=== PATIENT | female | born 1960 | race Caucasian/White ===

== ENCOUNTER 2018-04-26 04:08 | Inpatient (IN) | payer MEDICARE, MEDICAID ==
[2018-04-26 04:55] LABS: #Basophils 0.1 thou/uL (0.0-0.2); #Eosinphils 0.1 thou/uL (0.0-0.7); #Lymphocytes 2.4 thou/uL (1.20-3.40); #Monocytes 0.9 thou/uL (0.11-0.59); #Neutrophils 4.9 thou/uL (1.40-6.50); %Basophils 1.3 % (0.0-1.0); %Eosinophils 0.8 % (0.0-10.0); %Lymphocytes 28.3 % (21.0-51.0); %Neutrophils 58.6 % (42.0-75.0); Hemoglobin 14.8 g/dL (12.0-16.0); Mean Corpuscular HGB CONC 32.4 g/dL (32.0-36.0); Mean Corpuscular Hemoglobin 30.6 pg (27.0-31.0); Mean Corpuscular Volume 94.6 fL (78.0-98.0); Mean Platelet Volume 7.6 fL (7.4-10.4); Platelet Count 301 thou/uL (130-400); RBC Distribution Width 11.5 % (11.5-14.5); Red Blood Cell (RBC) Count 4.82 mill/uL (4.20-5.40); White Blood Cell (WBC) Count 8.4 thou/uL (4.8-10.8)
[2018-04-26 05:16] LABS: ALT (SGPT) 18 U/L (8-55); AST (SGOT) 15 U/L (5-34); Albumin 3.8 g/dL (3.5-5.0); Alkaline Phosphatase 134 U/L (40-150); Anion Gap 15 mmol/L (10-20); BUN (Urea Nitrogen) 11 mg/dL (9.8-20.1); Bilirubin, Total 0.3 mg/dL (0.2-1.2); Calc. Creatinine Clearance 0 mL/min (70-130); Carbon Dioxide 27 mmol/L (22-29); Chloride 99 mmol/L (98-107); Estimated GFR-MDRD 73; Globulin 3.4 g/dL (2.4-3.5); Glucose 161 mg/dL (70-105); Potassium 4.1 mmol/L (3.5-5.1); Protein, Total 7.2 g/dL (6.0-8.3); Sodium 137 mmol/L (136-145)
[2018-04-26] MEDS ORDERED: cefTRIAXone\\ROCEPHIN 2 GM VIAL ONE (06:39)
--- NOTE | 2018-04-26 07:57 | RAD ---
SINGLE VIEW OF THE CHEST: COMPARISON: None. HISTORY: Bronchitis with cough and shortness of breath. FINDINGS: Single view of the chest shows a normal sized cardiomediastinal silhouette. There is no evidence of c onsolidation, mass, or pleural effusion. The bones are unremarkable. IMPRESSION: No evidence of acute cardiopulmonary disease. POS: [facility]
[2018-04-26] MEDS ORDERED: Azithromycin 500 MG VIAL ONE (08:14)
[2018-04-26] MEDS ORDERED: Bacteriostatic Water 30 ML VIAL FS PRN (10:00)
[2018-04-26] MEDS ORDERED: Sodium Chloride 0.9% 10 ML ONE (10:13)
[2018-04-26] MEDS: methylPREDNISolone Sod Succ 40 MG VIAL IVP SCH ×2 (10:31→17:05)
[2018-04-26] MEDS ORDERED: Ondansetron PF 4 MG/2 ML Vial IVP PRN (12:32)
[2018-04-26] MEDS ORDERED: Ondansetron ODT 4 MG TAB PO PRN (12:32)
[2018-04-26] MEDS ORDERED: Acetaminophen 325 MG TAB PO PRN (12:32)
[2018-04-26] MEDS ORDERED: Senokot S 8.6-50 MG TAB PO PRN (12:32)
[2018-04-26] MEDS ORDERED: Calcium Carbonate 500 MG ChewTAB PO PRN (12:32)
[2018-04-26] MEDS ORDERED: Dextrose 50% Abboject 50 ML SYRINGE SLOW IVP PRN (12:32)
[2018-04-26] MEDS ORDERED: Dextrose 5% in Water 1,000 ML IV PRN (12:32)
[2018-04-26] MEDS ORDERED: Nitroglycerin 0.4 MG TAB (25 Tab Bottle) SL PRN (12:34)
[2018-04-26] MEDS ORDERED: Benzonatate 100 MG CAP PO PRN (12:36)
[2018-04-26] MEDS ORDERED: Gabapentin 300 MG CAP PO SCH (12:45)
[2018-04-26] MEDS ORDERED: Carvedilol 3.125 MG TAB PO SCH ×3 (12:45→21:00)
[2018-04-26] MEDS ORDERED: Aspirin 81 mg Enteric Coated Tablet PO SCH (12:45)
[2018-04-26] MEDS ORDERED: Losartan 25 MG TAB PO SCH (12:45)
[2018-04-26] MEDS ORDERED: Magnesium 2 GM/50 ML 2 GM in Premix Bag 1 BAG IVPB SCH (13:00)
[2018-04-26] MEDS: Sodium Chloride 0.9% 1,000 ML IV SCH (13:16)
--- NOTE | 2018-04-26 13:31 | HP ---
PRIMARY CARE DOCTOR: Dr. Marrufo. CHIEF COMPLAINT: Shortness of breath with wheezing of 1 week duration. HISTORY OF PRESENT ILLNESS: The patient is a 57-year-old female with asthma, diabetes mellitus type 2, hypertension, coronary artery disease, presented to the emergency room with worsening shortness of breath of one week duration. Over the last 1 week, the patient has progressively worsening shortness of breath along with wheezing. The patient gets short of breath on gxeb-sn-bonhpath exertion. She also had cough that was productive of thick whitish to greenish phlegm. Her symptoms progressively got worse for which she was evaluated by her PCP yesterday. She was diagnosed with asthmatic bronchitis. She was started on doxycycline along with inhalers without much improvement. The symptoms got worse last night, for which she presented to the emergency room. She denies any diaphoresis, nausea, vomiting, palpitations, or syncope. In the emergency room, initial vital signs showed temperature 97.6, respirations 20, pulse of 98 with a blood pressure 143/120, O2 saturation 91% on room air. Her chest x-ray showed possible right-sided infiltrate. She received ceftriaxone and azithromycin along with nebulizer treatment in the emergency room. The patient's grandchildren recently had common cold. PAST MEDICAL HISTORY: 1. Diabetes mellitus type 2. 2. Hypertension. 3. Hyperlipidemia. 4. Coronary artery disease with stent placement. 5. GERD. PAST SURGICAL HISTORY: 1. Bilateral knee replacement. 2. Right arm surgery. 3. Cholecystectomy. ALLERGIES: THE PATIENT DENIES ANY DRUG ALLERGIES. CURRENT HOME MEDICATIONS: 1. Aspirin 81 mg daily. 2. Nitroglycerin sublingual as needed. 3. Lipitor 80 mg daily. 4. Carvedilol 3.125 mg b.i.d. 5. Vitamin D3 2000 units b.i.d. 6. Gabapentin 300 mg daily. 7. Isosorbide mononitrate 30 mg daily. 8. Losartan 25 mg daily. 9. Mobic 15 mg daily. 10. Metformin 1000 mg b.i.d. 11. Omeprazole 20 mg daily. SOCIAL HISTORY: The patient currently lives at home with her family. She denies any smoking or drug use. She drinks alcohol socially. She lives at home with her . FAMILY HISTORY: Positive for pancreatic cancer in her sister, lung cancer in her mother as well as diabetes mellitus type 2 in several family members. REVIEW OF SYSTEMS: All other review of systems were reviewed and were found negative. PHYSICAL EXAMINATION: VITAL SIGNS: As discussed above. GENERAL: A 57-year-old female in dpcq-on-[id number] distress. Audible wheezing. HEENT: Head, atraumatic and normocephalic. Sclerae anicteric. Moist mucous membranes. No oral lesion. NECK: Supple. No stridor. No carotid bruit. LUNGS: Showed diffuse expiratory wheezing with right-sided rales. There were scattered rhonchi. Lungs were symmetrical with accessory muscle use. The patient is able to complete short phrases. HEART: S1 and S2 present. Regular rate and rhythm. No significant murmurs, rubs, or gallops appreciated. ABDOMEN: Soft, nontender, obese. Bowel sounds present. EXTREMITIES: No edema or calf tenderness. NEUROLOGIC: Grossly nonfocal. Moves all 4 extremities. PSYCHIATRY: Alert, awake, and oriented x3. SKIN: Warm and dry. LYMPH NODES: No palpable lymph nodes in the neck. PERIPHERAL VASCULAR: Radial pulses palpable bilaterally. MUSCULOSKELETAL: No joint swelling or tenderness. LABORATORY FINDINGS: WBC 8.4 with hemoglobin 14.8, hematocrit 45.6, platelets 301. Chemistry showed sodium 137, potassium 4.1, chloride 99, bicarbonate 27, BUN 11, creatinine 0.81. Troponin was negative. DIAGNOSTIC DATA: Chest x-ray by my review as discussed above. EKG by my review showed sinus rhythm without significant ST-T wave changes. IMPRESSION: 1. Acute asthma exacerbation with bronchitis and suspected right-sided pneumonia. 2. Diabetes mellitus type 2. 3. Chronic kidney disease, stage 2. 4. Hypertension. 5. Hyperlipidemia. 6. Coronary artery disease, status post stent placement. 7. Gastroesophageal reflux disease. PLAN: The patient will be monitored on the medical floor. We will continue ceftriaxone and azithromycin. We will resume selected home medications. Insulin sliding scale. Low-dose steroid due to significant wheezing. Resume PPIs. We will add Mucinex. DVT prophylaxis with SCDs. Plan of care was discussed with the patient and the family in detail. They stated understanding. Job ID: [id number]
[2018-04-26] MEDS: Insulin Regular 300 UNITS/3 ML VIAL SC PRN ×3 (15:30→22:52)
[2018-04-26] MEDS: metFORMIN 500 MG TAB PO SCH (17:05)
[2018-04-26] MEDS ORDERED: Insulin Glargine 15 UNITS in Pre-Filled Syringe 1 EACH SC SCH (17:30)
[2018-04-26] MEDS ORDERED: Famotidine 20 MG TAB PO SCH (21:00)
[2018-04-26] MEDS: Gabapentin 300 MG CAP PO SCH (21:51)
[2018-04-26] MEDS: guaiFENesin ER 600 MG TAB PO SCH (21:53)
[2018-04-27] MEDS: methylPREDNISolone Sod Succ 40 MG VIAL IVP SCH ×3 (02:21→17:08)
[2018-04-27] MEDS: Sodium Chloride 0.9% 1,000 ML IV SCH ×2 (03:50→17:07)
[2018-04-27] MEDS: Insulin Regular 300 UNITS/3 ML VIAL SC PRN ×4 (06:38→21:25)
[2018-04-27] MEDS: cefTRIAXone\\ROCEPHIN 2 GM in Sodium Chloride 0.9% 100 ML IVPB SCH (06:39)
[2018-04-27] MEDS ORDERED: Gabapentin 300 MG CAP PO SCH (09:00)
[2018-04-27] MEDS: metFORMIN 500 MG TAB PO SCH ×2 (09:18→17:08)
[2018-04-27] MEDS: Aspirin 81 mg Enteric Coated Tablet PO SCH (09:19)
[2018-04-27] MEDS: Atorvastatin Calcium 40 MG TAB PO SCH (09:20)
[2018-04-27] MEDS: Losartan 25 MG TAB PO SCH (09:22)
[2018-04-27] MEDS: guaiFENesin ER 600 MG TAB PO SCH ×2 (09:22→21:23)
[2018-04-27] MEDS: Carvedilol 3.125 MG TAB PO SCH ×2 (09:23→17:22)
[2018-04-27] MEDS: Azithromycin 500 MG in Sodium Chloride 0.9% 250 ML 250 ML IVPB SCH (09:36)
[2018-04-27] MEDS: Insulin Glargine 15 UNITS in Pre-Filled Syringe 1 EACH SC SCH (09:36)
--- NOTE | 2018-04-27 19:28 | PDOC.PN ---
- Subjective Encounter Start Date: 04/27/18 Encounter Start Time: 11:30 Patient seen and examined for Pneumonia. Cough and wheezing +. No new complaints. No overnight events - Objective Resuscitation Status - Order Detail: 04/26/18 12:32 Resuscitation Status Routine Resuscitation Status: FULL: Full Resuscitation MAR Reviewed: Yes Vital Signs & Weight: Vital Signs (12 hours) Temp Pulse Resp BP Pulse Ox 04/27/18 16:00 97.9 F 101 H 16 125/64 98 04/27/18 14:15 91 18 94 L 04/27/18 11:00 97.7 F 106 H 16 141/82 H 98 04/27/18 07:44 98.0 F 107 H 16 138/79 97 04/27/18 07:30 89 18 95 Weight Weight 244 lb 11.41 oz I&O: 04/26/18 04/27/18 04/28/18 06:59 06:59 06:59 Intake Total 1607 Balance 1607 Result Diagrams: 04/26/18 04:46 04/26/18 04:46 Additional Labs: Accuchecks 04/27/18 04/27/18 04/27/18 16:15 10:49 06:38 POC Glucose 203 H 315 H 195 H 04/26/18 04/26/18 22:34 19:26 POC Glucose 302 H 317 H Phys Exam - Physical Examination Constitutional: NAD Respiratory: no rhonchi, wheezing present Cardiovascular: RRR, no rub Gastrointestinal: soft, positive bowel sounds Musculoskeletal: no edema Dx/Plan - Plan DVT proph w/SCDs IMPRESSION: 1. Acute asthma exacerbation with bronchitis and suspected right-sided pneumonia. 2. Diabetes mellitus type 2. 3. Chronic kidney disease, stage 2. 4. Hypertension. 5. Hyperlipidemia. 6. Coronary artery disease, status post stent placement. 7. Gastroesophageal reflux disease. PLAN: Cont Ceftriaxone/Azithromycin Cont IV Steroids Add Lantus 10 units HS Cont Lantus 15 units QAM Cont other meds as below Cont Nebs Q4 Review of Systems - Review of Systems Cardiovascular: negative: chest pain, palpitations, orthopnea, paroxysmal nocturnal dyspnea, edema, light headedness, other Gastrointestinal: negative: Nausea, Vomiting, Abdominal Pain, Diarrhea, Constipation, Melena, Hematochezia, Other - Medications/Allergies Allergies/Adverse Reactions: Allergies Allergy/AdvReac Type Severity Reaction Status Date / Time No Known Allergies Allergy Verified 04/26/18 09:45 Medications: Current Medications Acetaminophen (Tylenol) 650 mg PO Q4H PRN PRN Reason: Headache/Fever/Mild Pain (1-3) Albuterol/Ipratropium (Duoneb) 3 ml NEB [id number] Last Admin: 04/27/18 14:15 Dose: 3 ml Albuterol/Ipratropium (Duoneb) 3 ml NEB [id number] PRN PRN Reason: SOB &/or Wheezing Aspirin (Ecotrin) 81 mg PO DAILY [facility] Last Admin: 04/27/18 09:19 Dose: 81 mg Atorvastatin Calcium (Lipitor) 80 mg PO DAILY [facility] Last Admin: 04/27/18 09:20 Dose: 80 mg Benzonatate (Tessalon) 100 mg PO TID PRN PRN Reason: Cough Calcium Carbonate (Tums) 1,000 mg PO Q4H PRN PRN Reason: Heartburn or Indigestion Carvedilol (Coreg) 3.125 mg PO BID[facility] Last Admin: 04/27/18 17:22 Dose: 3.125 mg Cholecalciferol (Vitamin D3) 2,000 units PO BID [facility] Last Admin: 04/27/18 09:22 Dose: 2,000 units Dextrose/Water (Dextrose 50%) 25 gm SLOW IVP PRN PRN PRN Reason: Hypoglycemia Gabapentin (Neurontin) 300 mg PO HS [facility] Last Admin: 04/26/18 21:51 Dose: 300 mg Glucagon (Glucagon) 1 mg IM PRN PRN PRN Reason: Hypoglycemia Guaifenesin (Mucinex) 600 mg PO Q12HR [facility] Last Admin: 04/27/18 09:22 Dose: 600 mg Azithromycin 500 mg/ Sodium (Chloride) 250 mls @ 250 mls/hr IVPB 0900 [facility] Last Admin: 04/27/18 09:36 Dose: 250 mls Sodium Chloride (Normal Saline 0.9%) 1,000 mls @ 75 mls/hr IV .[id number] [facility] Last Admin: 04/27/18 17:07 Dose: 1,000 mls Dextrose/Water (D5w) 1,000 mls @ 0 mls/hr IV .Q0M PRN PRN Reason: Hypoglycemia Ceftriaxone Sodium 2 gm/ (Sodium Chloride) 100 mls @ 200 mls/hr IVPB 0600 [facility] Last Admin: 04/27/18 06:39 Dose: 100 mls Insulin Glargine 15 units/ (Miscellaneous Medication) 0.15 mls @ 0 mls/hr SC QAM [facility] Last Admin: 04/27/18 09:36 Dose: 0.15 mls Insulin Glargine 10 units/ (Miscellaneous Medication) 0.1 mls @ 0 mls/hr SC HS [facility] Insulin Human Regular (Humulin R) 0 units SC .BEDTIME SLIDING SC PRN PRN Reason: Bedtime Correctional Scale Last Admin: 04/26/18 22:52 Dose: 4 unit Insulin Human Regular (Humulin R) 0 units SC .AGGRESSIVE SLIDING PRN PRN Reason: Aggressive Sliding Scale Last Admin: 04/27/18 17:11 Dose: 6 unit Isosorbide Mononitrate (Imdur Er) 30 mg PO DAILY [facility] Last Admin: 04/27/18 09:24 Dose: 30 mg Losartan Potassium (Cozaar) 25 mg PO DAILY [facility] Last Admin: 04/27/18 09:22 Dose: 25 mg Metformin HCl (Glucophage) 1,000 mg PO BID-[facility] Last Admin: 04/27/18 17:08 Dose: 1,000 mg Methylprednisolone Sodium Succinate (Solu-Medrol) 20 mg IVP 0200,1000,1800 [facility] Last Admin: 04/27/18 17:08 Dose: 20 mg Nitroglycerin (Nitrostat) 0.4 mg SL Q5MIN PRN PRN Reason: Chest Pain Ondansetron HCl (Zofran Odt) 4 mg PO Q6H PRN PRN Reason: Nausea/Vomiting Ondansetron HCl (Zofran) 4 mg IVP Q6H PRN PRN Reason: Nausea/Vomiting Pantoprazole Sodium (Protonix) 40 mg PO DAILY [facility] Last Admin: 04/27/18 09:22 Dose: 40 mg Senna/Docusate Sodium (Senokot S) 2 tab PO BID PRN PRN Reason: Constipation Sodium Chloride (Flush - Normal Saline) 10 ml IVF PRN PRN PRN Reason: Saline Flush Sterile Water (Bacteriostatic Water) 1 ml FS PRN PRN PRN Reason: RECONSTITUTION
[2018-04-27] MEDS ORDERED: Sodium Chloride 0.9% 1,000 ML IV SCH (19:33)
[2018-04-27] MEDS ORDERED: Insulin Glargine 10 UNITS in Pre-Filled Syringe 1 EACH SC SCH (21:00)
[2018-04-27] MEDS: Gabapentin 300 MG CAP PO SCH (21:22)
[2018-04-28] MEDS: methylPREDNISolone Sod Succ 40 MG VIAL IVP SCH ×2 (02:20→09:36)
[2018-04-28] MEDS: cefTRIAXone\\ROCEPHIN 2 GM in Sodium Chloride 0.9% 100 ML IVPB SCH (06:16)
[2018-04-28] MEDS: Insulin Regular 300 UNITS/3 ML VIAL SC PRN ×2 (06:25→12:09)
[2018-04-28] MEDS: Azithromycin 500 MG in Sodium Chloride 0.9% 250 ML 250 ML IVPB SCH (08:08)
[2018-04-28] MEDS: guaiFENesin ER 600 MG TAB PO SCH (08:09)
[2018-04-28] MEDS: Aspirin 81 mg Enteric Coated Tablet PO SCH (08:09)
[2018-04-28] MEDS: metFORMIN 500 MG TAB PO SCH (08:10)
[2018-04-28] MEDS: Atorvastatin Calcium 40 MG TAB PO SCH (08:16)
[2018-04-28] MEDS: Insulin Glargine 15 UNITS in Pre-Filled Syringe 1 EACH SC SCH (08:17)
[2018-04-28] MEDS: Carvedilol 3.125 MG TAB PO SCH (09:33)
[2018-04-28] MEDS: Losartan 25 MG TAB PO SCH (09:33)
[2018-04-28 12:40] VITALS: BP 144/76; TEMP 97.5
--- NOTE | 2018-04-29 14:33 | DIS ---
DATE OF ADMISSION: 04/26/2018 DATE OF DISCHARGE: 04/28/2018 DISCHARGE DISPOSITION: Home. FOLLOWUP: Follow up with primary care physician, Dr. Marrufo in 1 week. The patient was seen and examined on the day of discharge. Denies any new complaints. Shortness of breath has significantly improved. She appears comfortable. She prefers to get discharged. DISCHARGE MEDICATIONS: 1. Azithromycin 250 mg daily for next four days. 2. Glipizide 5 mg daily. 3. Prednisone 10 mg twice a day for next 5 days. 4. Mucinex 600 mg b.i.d. All other home medications were left unchanged. ALLERGIES: NO KNOWN DRUG ALLERGIES. BRIEF HOSPITAL COURSE: The patient is a 57-year-old female with asthma, diabetes mellitus type 2, hypertension, and coronary artery disease, presented to the emergency room with worsening shortness of breath and wheezing of one week duration. Please refer to the history and physical dated first April 2018 for further details. The patient was admitted to the hospital with a diagnosis of acute asthma exacerbation with bronchitis with suspected right-sided pneumonia. She showed good improvement with oxygen nebulizer treatment, IV steroids along with antibiotics. She was placed on ceftriaxone and azithromycin intravenously that has been changed to oral. She had some issues with hyperglycemia secondary to steroids requiring sliding scale as well as Lantus insulin. She has been started on glipizide for this reason. On the day of discharge, the wheezing has significantly improved. She feels confident. She appears stable for discharge. DIAGNOSTIC TESTS: BNP was less than 10. Troponin was negative. WBC 8.4 with hemoglobin 14.8. Chest x-ray showed suspected right-sided pneumonia. Lifestyle modification was emphasized. FINAL DIAGNOSES: 1. Acute asthma exacerbation with bronchitis with suspected right-sided pneumonia. 2. Diabetes mellitus type 2. 3. Chronic kidney disease stage 2. 4. Hypertension. 5. Hyperlipidemia. 6. Coronary artery disease, status post stent placement. 7. Gastroesophageal reflux disease. PLAN: Plan was discussed with the patient in detail. She stated understanding. Job ID: [id number]
== END 2018-04-28 15:56 | disposition home or self-care (01) | DRG 202 ==
LOC: ERS 04:08 → ERHOLD 07:07 → 3SE 09:24
PROVIDERS: ADMIT Hospitalist; ATTEND Hospitalist
DX: J45.901 Unspecified asthma with (acute) exacerbation (principal); J18.9 Pneumonia, unspecified organism; I25.10 Atherosclerotic heart disease of native coronary artery without angina pectoris; K21.9 Gastro-esophageal reflux disease without esophagitis; E11.65 Type 2 diabetes mellitus with hyperglycemia; N18.2 Chronic kidney disease, stage 2 (mild); E11.22 Type 2 diabetes mellitus with diabetic chronic kidney disease; E78.5 Hyperlipidemia, unspecified; I12.9 Hypertensive chronic kidney disease with stage 1 through stage 4 chronic kidney disease, or unspecified chronic kidney disease; Z96.653 Presence of artificial knee joint, bilateral; Z95.5 Presence of coronary angioplasty implant and graft; Z90.49 Acquired absence of other specified parts of digestive tract; Z79.82 Long term (current) use of aspirin; Z79.84 Long term (current) use of oral hypoglycemic drugs; Z79.899 Other long term (current) drug therapy; Z98.890 Other specified postprocedural states; Z23 Encounter for immunization
CPT/HCPCS: 36415; 36416; 71045; 80053; 83880; 84484; 85025; 93005; 94640; J0456; J0696; J1815; J1825; J2920; J3475; J7050; J7620

== ENCOUNTER 2018-06-11 12:16 | Emergency (ER) | payer MEDICARE, MEDICAID ==
--- NOTE | 2018-06-11 13:43 | RAD ---
RIGHT KNEE FOUR VIEWS: HISTORY: Pain and swelling. FINDINGS: Knee prosthesis. Components appear adequately positioned. No evidence of component loosening. Prom inent hypertrophic changes are present. No evidence of joint effusion. No evidence of acute fractur e. IMPRESSION: No acute abnormality identified. POS: [facility]
[2018-06-11] MEDS ORDERED: Acetaminophen 500 MG TAB ONE (13:45)
[2018-06-11 13:48] LABS: Bilirubin Negative (Negative); Blood, Urine Negative (Negative); Clarity CLOUDY (Clear); Glucose, Urine (Dipstick) 500 mg/dL (Negative); Leukocyte Negative (Negative); Nitrite Negative (Negative); Protein, Urine (Dipstick) Negative (Neg-Trace); Specific Gravity, Urine 1.028 (1.002-1.036); Urobilinogen 0.2 mg/dL (0.2-1.0)
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
== END 2018-06-11 14:32 | disposition home or self-care (01) ==
LOC: ERS 12:16
DX: S20.212A Contusion of left front wall of thorax, initial encounter (principal); S80.01XA Contusion of right knee, initial encounter; E11.9 Type 2 diabetes mellitus without complications; I10 Essential (primary) hypertension; V49.9XXA Car occupant (driver) (passenger) injured in unspecified traffic accident, initial encounter
CPT/HCPCS: 71250; 81003; 93005

== ENCOUNTER 2018-07-10 15:05 | Outpatient (CLI) | payer MEDICARE, MEDICAID ==
--- NOTE | 2018-07-10 15:21 | RAD ---
EXAM: Chest 2 views: HISTORY: Dyspnea COMPARISON: None. FINDINGS: There is a normal-sized cardiomediastinal silhouette. There is no evidence of consolidation, mass, or pleural effusion. The bones are unremarkable. IMPRESSION: No evidence of acute cardiopulmonary disease
== END 2018-07-10 15:06 | disposition home or self-care (01) ==
LOC: RAD 15:05
PROVIDERS: ATTEND Internal Medicine Pulmonary Disease
DX: R06.00 Dyspnea, unspecified (principal)
CPT/HCPCS: 71046

== ENCOUNTER 2018-08-09 19:30 | Outpatient (CLI) | payer MEDICARE, MEDICAID | END 2018-08-09 19:31 | disposition home or self-care (01) | LOC: SLEEPLAB 19:30 | PROVIDERS: ATTEND Internal Medicine Pulmonary Disease | DX: G47.33 Obstructive sleep apnea (adult) (pediatric) (principal); R53.83 Other fatigue; K21.9 Gastro-esophageal reflux disease without esophagitis; J44.9 Chronic obstructive pulmonary disease, unspecified; I11.0 Hypertensive heart disease with heart failure; I50.9 Heart failure, unspecified; G47.00 Insomnia, unspecified; G47.10 Hypersomnia, unspecified; I25.10 Atherosclerotic heart disease of native coronary artery without angina pectoris; E11.9 Type 2 diabetes mellitus without complications; R06.83 Snoring; E66.9 Obesity, unspecified; Z68.41 Body mass index [BMI] 40.0-44.9, adult | CPT/HCPCS: 95811 ==

== ENCOUNTER 2019-08-12 12:03 | Outpatient (CLI) | payer MEDICARE, MEDICAID ==
--- NOTE | 2019-08-20 10:01 | MMO ---
Bilateral MAMMO Bilat Screen [facility]. CLINICAL HISTORY: Patient is 58 years old and is seen for screening. The patient has the following family history of breast cancer: mother, malignant (generic). The patient has no personal history of cancer. VIEWS: The views performed were: bilateral craniocaudal with tomosynthesis and bilateral mediolateral oblique with tomosynthesis. FILMS COMPARED: The present examination has been compared to prior imaging studies performed at [facility] on 04/26/2015 and 06/06/2016. This study has been interpreted with the assistance of computer-aided detection. MAMMOGRAM FINDINGS: The breasts are almost entirely fat. There are stable benign appearing calcifications seen in both breasts. There are no suspicious masses, suspicious calcifications, or new areas of architectural distortion. IMPRESSION: THERE IS NO MAMMOGRAPHIC EVIDENCE OF MALIGNANCY. A ROUTINE FOLLOW-UP MAMMOGRAM IN 1 YEAR IS RECOMMENDED. THE RESULTS OF THIS EXAM WERE SENT TO THE PATIENT. ACR BI-RADS Category 2 - Benign finding MAMMOGRAPHY NOTE: 1. A negative mammogram report should not delay a biopsy if a dominant of clinically suspicious mass is present. 2. Approximately 10% to 15% of breast cancers are not detected by mammography. 3. Adenosis and dense breasts may obscure an underlying neoplasm. Reported by: FELIPE RENTERIA MD Electonically Signed: [id number]
== END 2019-08-12 12:04 | disposition home or self-care (01) ==
LOC: BICMAMMO 12:03
PROVIDERS: ATTEND Family Medicine
DX: Z12.31 Encounter for screening mammogram for malignant neoplasm of breast (principal); Z80.3 Family history of malignant neoplasm of breast
CPT/HCPCS: 77063; 77067

== ENCOUNTER 2019-08-18 06:11 | Outpatient (CLI) | payer MEDICARE, MEDICAID, OTHER ==
[2019-08-19 13:46] LABS: SARS-CoV-2 MS2 Positive; SARS-CoV-2 N Gene Negative; SARS-CoV-2 S Gene Negative; SARS-CoV-2 orf1ab Negative
== END 2019-08-18 06:12 | disposition home or self-care (01) ==
LOC: LABBT 06:11
PROVIDERS: ATTEND Internal Medicine Gastroenterology
DX: Z01.812 Encounter for preprocedural laboratory examination (principal); Z11.59 Encounter for screening for other viral diseases; K52.9 Noninfective gastroenteritis and colitis, unspecified; R15.9 Full incontinence of feces; K92.1 Melena; J45.909 Unspecified asthma, uncomplicated; E11.9 Type 2 diabetes mellitus without complications; I25.10 Atherosclerotic heart disease of native coronary artery without angina pectoris; K21.9 Gastro-esophageal reflux disease without esophagitis; E66.01 Morbid (severe) obesity due to excess calories; Z86.010 Personal history of colon polyps
CPT/HCPCS: 87635; U0003

== ENCOUNTER 2019-08-21 05:54 | Day surgery (SDC) | payer MEDICARE, MEDICAID ==
[2019-08-15 12:26] VITALS: BMI 44.2
--- NOTE | 2019-08-21 09:18 | OP ---
DATE OF PROCEDURE: 08/21/2019 PROCEDURES: Esophagogastroduodenoscopy with biopsy and colonoscopy with biopsy. PREOPERATIVE DIAGNOSES: Gastroesophageal reflux disease, hematochezia, chronic diarrhea, history of colon polyps. DESCRIPTION OF PROCEDURE: Informed consent was obtained from the patient. She was sedated with total intravenous anesthesia. The bite block was placed, and the endoscope was advanced without difficulty to the second portion of the duodenum. The esophagus had grade A erosive esophagitis in the distal esophagus. The stomach had erosive gastritis in the proximal body, but was otherwise unremarkable. Retroflexed views in the stomach were normal. The antrum was unremarkable. Biopsies were taken from the antrum and body to rule out H pylori. The pylorus and first and second portions of the duodenum were normal. Duodenal biopsies were taken to rule out celiac disease. The patient was turned around. Rectal exam was performed and was normal. The colonoscope was advanced to the terminal ileum without difficulty. The mucosa of the terminal ileum was normal. The ileocecal valve and appendiceal orifice were clearly identified. The preparation quality was good. There was moderate diverticulosis in the sigmoid and descending colon. I removed two polyps measuring 5 mm from the transverse colon by cold snare polypectomy. The remainder of the colonic mucosa was normal. Retroflexed views in the rectum revealed moderate internal hemorrhoids. Random biopsies were taken from the ascending, transverse, and sigmoid colon to rule out microscopic colitis. IMPRESSION: 1. Grade A erosive esophagitis. 2. Erosive gastritis in the proximal body. Biopsies were taken from the stomach to rule out Helicobacter pylori. 3. Otherwise normal esophagogastroduodenoscopy. Duodenal biopsies were taken to rule out celiac disease. 4. Sigmoid and descending moderate diverticulosis. 5. Two polyps measuring 5 mm removed from the transverse colon by cold snare polypectomy. 6. Otherwise normal colonoscopy to the terminal ileum. Random biopsies were taken from the colon to rule out microscopic colitis. 7. Moderate internal hemorrhoids. RECOMMENDATIONS: 1. Await histopathology. 2. Repeat colonoscopy in 5 years. 3. Follow up in GI clinic. 4. Start Metamucil two capsules daily. Job ID: [id number]
[2019-08-21] MEDS ORDERED: PROPOFOL 200 MG/20 ML VIAL ONE (10:35)
== END 2019-08-21 08:56 | disposition home or self-care (01) ==
LOC: SDC 05:54
PROVIDERS: ATTEND Internal Medicine Gastroenterology
PROC: 0DB98ZX Excision of Duodenum, Via Natural or Artificial Opening Endoscopic, Diagnostic (ICD-10-PCS; principal; 2019-08-21)
PROC: 0DB78ZX Excision of Stomach, Pylorus, Via Natural or Artificial Opening Endoscopic, Diagnostic (ICD-10-PCS; 2019-08-21)
PROC: 0DBL8ZX Excision of Transverse Colon, Via Natural or Artificial Opening Endoscopic, Diagnostic (ICD-10-PCS; 2019-08-21)
PROC: 0DBK8ZX Excision of Ascending Colon, Via Natural or Artificial Opening Endoscopic, Diagnostic (ICD-10-PCS; 2019-08-21)
PROC: 0DBL8ZX Excision of Transverse Colon, Via Natural or Artificial Opening Endoscopic, Diagnostic (ICD-10-PCS; 2019-08-21)
PROC: 0DBN8ZX Excision of Sigmoid Colon, Via Natural or Artificial Opening Endoscopic, Diagnostic (ICD-10-PCS; 2019-08-21)
DX: K57.31 Diverticulosis of large intestine without perforation or abscess with bleeding (principal); D12.3 Benign neoplasm of transverse colon; K52.9 Noninfective gastroenteritis and colitis, unspecified; K31.89 Other diseases of stomach and duodenum; D72.820 Lymphocytosis (symptomatic); K64.8 Other hemorrhoids; K21.0 Gastro-esophageal reflux disease with esophagitis; R15.9 Full incontinence of feces; I25.10 Atherosclerotic heart disease of native coronary artery without angina pectoris; E11.9 Type 2 diabetes mellitus without complications; E78.00 Pure hypercholesterolemia, unspecified; I10 Essential (primary) hypertension; J45.909 Unspecified asthma, uncomplicated; E66.01 Morbid (severe) obesity due to excess calories; Z68.41 Body mass index [BMI] 40.0-44.9, adult; Z86.010 Personal history of colon polyps; Z86.73 Personal history of transient ischemic attack (TIA), and cerebral infarction without residual deficits; Z79.82 Long term (current) use of aspirin; Z79.84 Long term (current) use of oral hypoglycemic drugs; Z79.899 Other long term (current) drug therapy
CPT/HCPCS: 88305; 88312; J2704

== ENCOUNTER 2020-01-12 08:56 | Outpatient (CLI) | payer MEDICARE, MEDICAID ==
[2020-01-12 23:15] LABS: SARS-CoV-2 MS2 Positive; SARS-CoV-2 N Gene Negative; SARS-CoV-2 S Gene Negative; SARS-CoV-2 by NAA Not Detected (NotDetected); SARS-CoV-2 orf1ab Negative
== END 2020-01-12 08:57 | disposition home or self-care (01) ==
LOC: LABBT 08:56
PROVIDERS: ATTEND Physical Medicine & Rehabilitation
DX: Z01.812 Encounter for preprocedural laboratory examination (principal); Z20.828 Contact with and (suspected) exposure to other viral communicable diseases
CPT/HCPCS: 87635; U0003

== ENCOUNTER → 2020-01-16 | Day surgery (SDC) | payer MEDICARE, MEDICAID ==
[~2020-01-16] MED LIST: Fentanyl 100 MCG/2 ML VIAL ONE; Midazolam HCl 2 mg/2 ml Vial ONE
== END ==
LOC: SDC/OP 11:11
PROVIDERS: ATTEND Physical Medicine & Rehabilitation
DX: M54.5 Low back pain (principal); Z53.9 Procedure and treatment not carried out, unspecified reason
CPT/HCPCS: J2250; J3010

== ENCOUNTER 2020-06-03 10:20 | Outpatient (CLI) | payer MEDICARE, MEDICAID ==
[2020-06-03 17:45] LABS: SARS-CoV-2 PCR by NAA Not Detected (NotDetected)
== END 2020-06-03 10:21 | disposition home or self-care (01) ==
LOC: LABBT 10:20
PROVIDERS: ATTEND Physical Medicine & Rehabilitation
DX: Z01.812 Encounter for preprocedural laboratory examination (principal); Z20.822 Contact with and (suspected) exposure to COVID-19
CPT/HCPCS: U0003; U0005; 87635

== ENCOUNTER 2020-06-07 10:02 | Day surgery (SDC) | payer MEDICARE, MEDICAID ==
[2020-06-04 09:07] VITALS: BMI 44.1
[2020-06-07] MEDS ORDERED: Midazolam HCl 2 mg/2 ml Vial ONE (11:39)
[2020-06-07] MEDS ORDERED: PHENYLEPHRINE-NS 100 MCG/ML 10 ML SYRINGE ONE (12:00)
[2020-06-07] MEDS ORDERED: Dexamethasone 20 MG/5 ML VIAL ONE (12:00)
[2020-06-07] MEDS ORDERED: PROPOFOL 200 MG/20 ML VIAL ONE (12:00)
[2020-06-07] MEDS ORDERED: Lidocaine 1% PF 5 ML VIAL ONE (12:00)
[2020-06-07] MEDS ORDERED: Ondansetron PF 4 MG/2 ML Vial ONE (12:00)
== END 2020-06-07 14:25 | disposition home or self-care (01) ==
LOC: SDC/OP 10:02
PROVIDERS: ATTEND Physical Medicine & Rehabilitation
DX: M43.16 Spondylolisthesis, lumbar region (principal); M54.16 Radiculopathy, lumbar region; D18.09 Hemangioma of other sites; M25.78 Osteophyte, vertebrae; M48.061 Spinal stenosis, lumbar region without neurogenic claudication; E11.9 Type 2 diabetes mellitus without complications; Z86.73 Personal history of transient ischemic attack (TIA), and cerebral infarction without residual deficits; Z79.82 Long term (current) use of aspirin; Z79.84 Long term (current) use of oral hypoglycemic drugs; Z79.899 Other long term (current) drug therapy; Z96.653 Presence of artificial knee joint, bilateral
CPT/HCPCS: 72148; J1100; J2250; J2405; J2704

== ENCOUNTER 2020-08-11 11:02 | Inpatient (IN) | payer MEDICARE, MEDICAID ==
[2020-08-11 12:07] LABS: Eosinophils 1 % (0-10); Hemoglobin 13.8 g/dL (12.0-16.0); Lymphocytes 20 % (21-51); MDiff Complete? YES; Mean Corpuscular HGB CONC 32.9 g/dL (32.0-36.0); Mean Corpuscular Hemoglobin 30.2 pg (27.0-31.0); Mean Corpuscular Volume 91.8 fL (78.0-98.0); Mean Platelet Volume 9.6 fL (7.4-10.4); Monocytes 10 % (0-10); Neutrophil 69 % (42-75); Platelet Count 212 thou/uL (130-400); RBC Distribution Width 12.8 % (11.5-14.5); Red Blood Cell (RBC) Count 4.57 mill/uL (4.20-5.40); White Blood Cell (WBC) Count 10.5 thou/uL (4.8-10.8)
[2020-08-11 12:19] LABS: ALT (SGPT) 25 U/L (8-55); AST (SGOT) 34 U/L (5-34); Albumin 3.6 g/dL (3.5-5.0); Alkaline Phosphatase 137 U/L (40-110); Anion Gap 20 mmol/L (10-20); BUN (Urea Nitrogen) 21 mg/dL (9.8-20.1); Bilirubin, Total 0.8 mg/dL (0.2-1.2); CK (CPK) 44 U/L (29-168); Calc. Creatinine Clearance 0 mL/min (70-130); Calcium 8.8 mg/dL (7.8-10.44); Carbon Dioxide 21 mmol/L (22-29); Chloride 103 mmol/L (98-107); Globulin 3.3 g/dL (2.4-3.5); Glucose 217 mg/dL (70-105); Lipase 33 U/L (8-78); Potassium 4.5 mmol/L (3.5-5.1); Protein, Total 6.9 g/dL (6.0-8.3); Sodium 139 mmol/L (136-145)
[2020-08-11 16:54] LABS: Troponin I Less than 0.010 ng/mL (< 0.028)
[2020-08-11] MEDS ORDERED: Ondansetron PF 4 MG/2 ML Vial IVP PRN (17:08)
[2020-08-11] MEDS ORDERED: Acetaminophen 325 MG TAB PO PRN (17:08)
[2020-08-11] MEDS ORDERED: Acetaminophen 650 MG Suppository PR PRN (17:08)
[2020-08-11] MEDS ORDERED: Ondansetron ODT 4 MG TAB PO PRN (17:08)
[2020-08-11] MEDS ORDERED: Aspirin 325 MG TAB PO SCH (17:15)
[2020-08-11 19:23] LABS: Troponin I Less than 0.010 ng/mL (< 0.028)
[2020-08-11] MEDS ORDERED: Aspirin 325 MG TAB ONE (19:55)
[2020-08-11] MEDS ORDERED: Aspirin Chewable 81 MG TAB ONE (19:58)
[2020-08-12 05:21] LABS: #Basophils 0.1 thou/uL (0.0-0.2); #Eosinphils 0.4 thou/uL (0.0-0.7); #Lymphocytes 2.9 thou/uL (1.20-3.40); #Monocytes 0.7 thou/uL (0.11-0.59); %Basophils 0.9 % (0.0-1.0); %Eosinophils 3.9 % (0.0-10.0); %Lymphocytes 28.8 % (21.0-51.0); %Monocytes 7.2 % (0.0-10.0); %Neutrophils 59.2 % (42.0-75.0); Hemoglobin 13.4 g/dL (12.0-16.0); Mean Corpuscular HGB CONC 33.7 g/dL (32.0-36.0); Mean Corpuscular Hemoglobin 31.4 pg (27.0-31.0); Mean Corpuscular Volume 93.1 fL (78.0-98.0); Mean Platelet Volume 8.3 fL (7.4-10.4); Platelet Count 230 thou/uL (130-400); RBC Distribution Width 12.7 % (11.5-14.5); Red Blood Cell (RBC) Count 4.27 mill/uL (4.20-5.40); White Blood Cell (WBC) Count 10.1 thou/uL (4.8-10.8)
[2020-08-12 05:42] LABS: Anion Gap 13 mmol/L (10-20); BUN (Urea Nitrogen) 25 mg/dL (9.8-20.1); Calc. Creatinine Clearance 0 mL/min (70-130); Calcium 9.3 mg/dL (7.8-10.44); Carbon Dioxide 26 mmol/L (22-29); Cardiac Risk 5.4 (Less than 4.5); Chloride 101 mmol/L (98-107); Cholesterol 141 mg/dl (< 200 Desired); Glucose 163 mg/dL (70-105); HDL Cholesterol 26 mg/dL (>60 Neg Risk); Potassium 3.5 mmol/L (3.5-5.1); Sodium 136 mmol/L (136-145); Triglycerides 432 mg/dL (Less than 150)
[2020-08-12 05:44] LABS: LDL Cholesterol, Calculated 29 mg/dL
[2020-08-12 07:45] VITALS: BMI 43.9
[2020-08-12] MEDS ORDERED: Aspirin Chewable 81 MG TAB ONE (07:48)
[2020-08-12] MEDS: Aspirin Chewable 81 MG TAB PO SCH (07:49)
[2020-08-12] MEDS ORDERED: Dextrose 50% Abboject 50 ML SYRINGE SLOW IVP PRN (08:14)
[2020-08-12] MEDS ORDERED: Dextrose 5% in Water 1,000 ML IV PRN (08:14)
[2020-08-12] MEDS ORDERED: HumaLOG 300 UNITS/3 ML VIAL SC PRN ×2 (08:14)
[2020-08-12] MEDS ORDERED: Sodium Chloride 0.9% 500 ML IV SCH (08:15)
[2020-08-12 09:13] LABS: SARS-CoV-2 NAA Rapid Test Not Detected (NotDetected)
[2020-08-12] MEDS ORDERED: Regadenoson 0.4 MG/5 ML SYRINGE ONE (09:45)
[2020-08-12] MEDS ORDERED: Non-Formulary Item 1 EACH (Dulaglutide [Trulicity] 1.5 MG/0.5 ML Pen.Injctr) SC SCH (11:00)
[2020-08-12] MEDS: Icosapent Ethyl 1 GM CAPSULE PO SCH (16:54)
[2020-08-12] MEDS: Mometasone 100 MCG/Formoterol 5 MCG 120 PUFF INHALER INH SCH (18:36)
[2020-08-12] MEDS ORDERED: Atorvastatin Calcium 40 MG TAB PO SCH (21:00)
[2020-08-13 05:17] LABS: #Basophils 0.1 thou/uL (0.0-0.2); #Eosinphils 0.3 thou/uL (0.0-0.7); #Lymphocytes 2.7 thou/uL (1.20-3.40); #Monocytes 0.6 thou/uL (0.11-0.59); #Neutrophils 4.4 thou/uL (1.40-6.50); %Eosinophils 3.3 % (0.0-10.0); %Lymphocytes 32.9 % (21.0-51.0); %Monocytes 7.9 % (0.0-10.0); %Neutrophils 54.8 % (42.0-75.0); Hemoglobin 13.4 g/dL (12.0-16.0); Mean Corpuscular Hemoglobin 30.6 pg (27.0-31.0); Mean Corpuscular Volume 92.8 fL (78.0-98.0); Mean Platelet Volume 8.7 fL (7.4-10.4); Platelet Count 218 thou/uL (130-400); RBC Distribution Width 12.6 % (11.5-14.5); Red Blood Cell (RBC) Count 4.39 mill/uL (4.20-5.40); White Blood Cell (WBC) Count 8.1 thou/uL (4.8-10.8)
[2020-08-13 05:41] LABS: Anion Gap 14 mmol/L (10-20); BUN (Urea Nitrogen) 18 mg/dL (9.8-20.1); Calc. Creatinine Clearance 128 mL/min (70-130); Calcium 8.8 mg/dL (7.8-10.44); Carbon Dioxide 25 mmol/L (22-29); Chloride 104 mmol/L (98-107); Glucose 188 mg/dL (70-105); Potassium 3.8 mmol/L (3.5-5.1); Sodium 139 mmol/L (136-145)
[2020-08-13] MEDS: Mometasone 100 MCG/Formoterol 5 MCG 120 PUFF INHALER INH SCH (07:06)
[2020-08-13] MEDS: Aspirin Chewable 81 MG TAB PO SCH (08:32)
[2020-08-13 09:37] VITALS: BP 133/64; TEMP 98.2
[2020-08-13] MEDS: Icosapent Ethyl 1 GM CAPSULE PO SCH (10:50)
== END 2020-08-13 11:27 | disposition home or self-care (01) | DRG 683 ==
LOC: ERS 11:02 → ERHOLD 16:29 → 2SW 08-12 13:12 → OBSVTOIN 08-12 15:26
PROVIDERS: ADMIT Internal Medicine; ATTEND Internal Medicine
DX: N17.9 Acute kidney failure, unspecified (principal); Z68.41 Body mass index [BMI] 40.0-44.9, adult; Z20.822 Contact with and (suspected) exposure to COVID-19; I10 Essential (primary) hypertension; E78.5 Hyperlipidemia, unspecified; E11.9 Type 2 diabetes mellitus without complications; K21.9 Gastro-esophageal reflux disease without esophagitis; Z96.653 Presence of artificial knee joint, bilateral; I25.10 Atherosclerotic heart disease of native coronary artery without angina pectoris; Z95.5 Presence of coronary angioplasty implant and graft; Z82.49 Family history of ischemic heart disease and other diseases of the circulatory system; Z79.899 Other long term (current) drug therapy; Z79.82 Long term (current) use of aspirin; Z79.84 Long term (current) use of oral hypoglycemic drugs; Z90.49 Acquired absence of other specified parts of digestive tract; E66.01 Morbid (severe) obesity due to excess calories
CPT/HCPCS: 0241U; 36415; 36416; 71045; 78452; 80048; 80053; 80061; 82550; 83690; 83880; 84484; 85025; 85379; 85652; 86140; 93005; 93017; 94760; A9500; G0378; J2785; U0003; U0005

== ENCOUNTER 2020-10-17 17:39 | Inpatient (IN) | payer MEDICARE, MEDICAID ==
[2020-10-17] MEDS ORDERED: Bisacodyl 5 MG TAB PO PRN (20:04)
[2020-10-17] MEDS ORDERED: Acetaminophen 325 MG TAB PO PRN (20:04)
[2020-10-17] MEDS ORDERED: Senokot S 8.6-50 MG TAB PO PRN (20:04)
[2020-10-17] MEDS ORDERED: HYDROcodone/Acetaminophen 7.5/325 mg Tablet PO PRN (20:04)
[2020-10-17] MEDS ORDERED: Ondansetron ODT 4 MG TAB PO PRN (20:04)
[2020-10-17] MEDS ORDERED: Pharmacy to Dose REMDESIVIR IVPB PRN (20:44)
[2020-10-17] MEDS ORDERED: Zinc Sulfate 220 MG CAP PO SCH (21:00)
[2020-10-17] MEDS: Ascorbic Acid 500 mg Chewable Tablet PO SCH (21:40)
[2020-10-17] MEDS: Famotidine 20 MG TAB PO SCH (21:40)
[2020-10-17] MEDS ORDERED: REMDESIVIR 200 MG in Sodium Chloride 0.9% 250 ML 210 ML IV SCH (22:00)
[2020-10-17 23:34] VITALS: BMI 42.5
[2020-10-18] MEDS ORDERED: Dextrose 5% in Water 1,000 ML IV PRN (01:30)
[2020-10-18] MEDS ORDERED: Dextrose 50% Abboject 50 ML SYRINGE SLOW IVP PRN (01:30)
[2020-10-18] MEDS: HumaLOG 300 UNITS/3 ML VIAL SC PRN ×4 (05:55→20:33)
[2020-10-18] MEDS: HYDROcodone/Acetaminophen 5/325 mg Tablet PO PRN (06:01)
[2020-10-18] MEDS ORDERED: Thiamine 100 MG TAB PO SCH (08:00)
[2020-10-18 08:06] LABS: Hemoglobin 14.2 g/dL (12.0-16.0); Mean Corpuscular HGB CONC 32.8 g/dL (32.0-36.0); Mean Corpuscular Hemoglobin 30.3 pg (27.0-31.0); Mean Corpuscular Volume 92.4 fL (78.0-98.0); Mean Platelet Volume 8.4 fL (7.4-10.4); Platelet Count 228 thou/uL (130-400); RBC Distribution Width 12.1 % (11.5-14.5); White Blood Cell (WBC) Count 6.1 thou/uL (4.8-10.8)
[2020-10-18 08:09] LABS: Hemoglobin A1c 7.5 % (4.0-6.0)
[2020-10-18 08:20] LABS: ALT (SGPT) 22 U/L (8-55); AST (SGOT) 17 U/L (5-34); Albumin 3.6 g/dL (3.5-5.0); Alkaline Phosphatase 135 U/L (40-110); Anion Gap 13 mmol/L (10-20); BUN (Urea Nitrogen) 12 mg/dL (9.8-20.1); Bilirubin, Total 0.4 mg/dL (0.2-1.2); Calc. Creatinine Clearance 154 mL/min (70-130); Calcium 8.9 mg/dL (7.8-10.44); Carbon Dioxide 25 mmol/L (22-29); Chloride 103 mmol/L (98-107); Globulin 3.3 g/dL (2.4-3.5); Glucose 244 mg/dL (70-105); Protein, Total 6.9 g/dL (6.0-8.3); Sodium 137 mmol/L (136-145)
[2020-10-18 08:50] LABS: #Lymphocytes 1.2 thou/uL (1.20-3.40); #Monocytes 0.1 thou/uL (0.11-0.59); #Neutrophils 5.5 thou/uL (1.40-6.50); %Basophils 0.2 % (0.0-1.0); %Eosinophils 0.2 % (0.0-10.0); %Lymphocytes 17.4 % (21.0-51.0); %Monocytes 1.8 % (0.0-10.0); %Neutrophils 80.4 % (42.0-75.0); Hemoglobin 14.7 g/dL (12.0-16.0); Mean Corpuscular HGB CONC 31.6 g/dL (32.0-36.0); Mean Corpuscular Hemoglobin 29.3 pg (27.0-31.0); Mean Corpuscular Volume 92.5 fL (78.0-98.0); Mean Platelet Volume 8.2 fL (7.4-10.4); Platelet Count 227 thou/uL (130-400); RBC Distribution Width 12.2 % (11.5-14.5); Red Blood Cell (RBC) Count 5.03 mill/uL (4.20-5.40); White Blood Cell (WBC) Count 6.8 thou/uL (4.8-10.8)
[2020-10-18 08:59] LABS: Band 9 % (5-11); Lymphocytes 25 % (21-51); MDiff Complete? YES; Monocytes 2 % (0-10); Neutrophil 64 % (42-75); Platelet Morphology Comment Appears Adequate; RBC Morphology Normal
[2020-10-18] MEDS ORDERED: Dexamethasone 10 MG in Sodium Chloride 0.9% 50 ML IVPB SCH (09:00)
[2020-10-18] MEDS ORDERED: Dexamethasone Sod Phosphate 6 MG in Sodium Chloride 0.9% 50 ML IVPB SCH (09:00)
[2020-10-18] MEDS: Dexamethasone 4 mg/ml Vial SLOW IVP SCH (09:38)
[2020-10-18] MEDS: Zinc Sulfate 220 MG CAP PO SCH (09:39)
[2020-10-18] MEDS: Cholecalciferol (Vitamin D3) 400 UNITS TAB PO SCH (09:39)
[2020-10-18] MEDS: Ascorbic Acid 500 mg Chewable Tablet PO SCH ×2 (09:39→20:34)
[2020-10-18] MEDS: Enoxaparin Sodium 40 MG/0.4 ML SYRINGE SC SCH (09:39)
[2020-10-18] MEDS: Famotidine 20 MG TAB PO SCH ×2 (09:39→20:34)
[2020-10-18] MEDS: Thiamine 100 MG TAB PO SCH (11:49)
[2020-10-18] MEDS ORDERED: guaiFENesin ER 600 MG TAB PO SCH (15:15)
[2020-10-18] MEDS ORDERED: Losartan 25 MG TAB PO SCH (20:00)
[2020-10-18] MEDS: Gabapentin 300 MG CAP PO SCH (20:35)
[2020-10-18] MEDS: Atorvastatin Calcium 40 MG TAB PO SCH (20:35)
[2020-10-18] MEDS: Carvedilol 25 MG TAB PO SCH (20:35)
[2020-10-18] MEDS: guaiFENesin ER 600 MG TAB PO SCH (20:37)
[2020-10-18] MEDS: REMDESIVIR 100 MG in Sodium Chloride 0.9% 250 ML 230 ML IV SCH (21:00)
[2020-10-19] MEDS: HumaLOG 300 UNITS/3 ML VIAL SC PRN ×4 (05:33→21:35)
[2020-10-19] MEDS: Mometasone 100 MCG/Formoterol 5 MCG 120 PUFF INHALER INH SCH ×2 (05:35→17:57)
[2020-10-19 06:50] LABS: #Lymphocytes 1.7 thou/uL (1.20-3.40); #Neutrophils 7.2 thou/uL (1.40-6.50); %Basophils 0.4 % (0.0-1.0); %Eosinophils 0.2 % (0.0-10.0); %Lymphocytes 17.4 % (21.0-51.0); %Monocytes 10.2 % (0.0-10.0); %Neutrophils 71.8 % (42.0-75.0); Hemoglobin 13.3 g/dL (12.0-16.0); Mean Corpuscular Hemoglobin 31.1 pg (27.0-31.0); Mean Corpuscular Volume 94.2 fL (78.0-98.0); Mean Platelet Volume 8.6 fL (7.4-10.4); Platelet Count 273 thou/uL (130-400); RBC Distribution Width 12.2 % (11.5-14.5); Red Blood Cell (RBC) Count 4.29 mill/uL (4.20-5.40)
[2020-10-19 07:06] LABS: Anion Gap 11 mmol/L (10-20); BUN (Urea Nitrogen) 17 mg/dL (9.8-20.1); CRP (Inflammatory) 3.72 mg/dL (= or < 0.5); Calc. Creatinine Clearance 144 mL/min (70-130); Calcium 8.7 mg/dL (7.8-10.44); Carbon Dioxide 26 mmol/L (22-29); Chloride 105 mmol/L (98-107); Glucose 269 mg/dL (70-105); Potassium 4.2 mmol/L (3.5-5.1); Sodium 138 mmol/L (136-145)
[2020-10-19] MEDS: Thiamine 100 MG TAB PO SCH (08:11)
[2020-10-19] MEDS: Losartan 25 MG TAB PO SCH (08:11)
[2020-10-19] MEDS: Aspirin 81 mg Enteric Coated Tablet PO SCH (08:11)
[2020-10-19] MEDS: Ascorbic Acid 500 mg Chewable Tablet PO SCH ×2 (08:12→21:26)
[2020-10-19] MEDS: Carvedilol 25 MG TAB PO SCH ×2 (08:12→21:26)
[2020-10-19] MEDS: Famotidine 20 MG TAB PO SCH ×2 (08:12→21:26)
[2020-10-19] MEDS: Gabapentin 300 MG CAP PO SCH ×2 (08:12→21:25)
[2020-10-19] MEDS: Cholecalciferol (Vitamin D3) 400 UNITS TAB PO SCH (08:12)
[2020-10-19] MEDS: Dexamethasone 4 mg/ml Vial SLOW IVP SCH (08:13)
[2020-10-19] MEDS: Enoxaparin Sodium 40 MG/0.4 ML SYRINGE SC SCH (08:13)
[2020-10-19] MEDS: Icosapent Ethyl 1 GM CAPSULE PO SCH ×2 (08:51→16:47)
[2020-10-19] MEDS: Zinc Sulfate 220 MG CAP PO SCH (08:52)
[2020-10-19] MEDS: guaiFENesin ER 600 MG TAB PO SCH ×2 (10:26→21:26)
[2020-10-19] MEDS: Atorvastatin Calcium 40 MG TAB PO SCH (21:25)
[2020-10-19] MEDS: REMDESIVIR 100 MG in Sodium Chloride 0.9% 250 ML 230 ML IV SCH (21:25)
[2020-10-20] MEDS: HumaLOG 300 UNITS/3 ML VIAL SC PRN ×4 (05:35→20:24)
[2020-10-20] MEDS: Mometasone 100 MCG/Formoterol 5 MCG 120 PUFF INHALER INH SCH ×2 (05:40→17:55)
[2020-10-20 07:22] LABS: Anion Gap 15 mmol/L (10-20); BUN (Urea Nitrogen) 19 mg/dL (9.8-20.1); CRP (Inflammatory) 1.74 mg/dL (= or < 0.5); Calc. Creatinine Clearance 152 mL/min (70-130); Calcium 8.6 mg/dL (7.8-10.44); Carbon Dioxide 21 mmol/L (22-29); Chloride 106 mmol/L (98-107); Glucose 273 mg/dL (70-105); Potassium 4.3 mmol/L (3.5-5.1); Sodium 138 mmol/L (136-145)
[2020-10-20] MEDS: Cholecalciferol (Vitamin D3) 400 UNITS TAB PO SCH (07:56)
[2020-10-20] MEDS: Icosapent Ethyl 1 GM CAPSULE PO SCH ×2 (07:56→16:53)
[2020-10-20] MEDS: Aspirin 81 mg Enteric Coated Tablet PO SCH (07:56)
[2020-10-20] MEDS: Ascorbic Acid 500 mg Chewable Tablet PO SCH ×2 (07:56→20:22)
[2020-10-20] MEDS: Dexamethasone 4 mg/ml Vial SLOW IVP SCH (07:56)
[2020-10-20] MEDS: Thiamine 100 MG TAB PO SCH (07:56)
[2020-10-20] MEDS: Gabapentin 300 MG CAP PO SCH ×2 (07:57→20:23)
[2020-10-20] MEDS: Famotidine 20 MG TAB PO SCH ×2 (07:57→20:22)
[2020-10-20] MEDS: Zinc Sulfate 220 MG CAP PO SCH (07:57)
[2020-10-20] MEDS: guaiFENesin ER 600 MG TAB PO SCH ×2 (07:57→20:22)
[2020-10-20] MEDS: Carvedilol 25 MG TAB PO SCH ×2 (07:57→20:22)
[2020-10-20] MEDS: Losartan 25 MG TAB PO SCH (07:57)
[2020-10-20] MEDS: Enoxaparin Sodium 40 MG/0.4 ML SYRINGE SC SCH (07:58)
[2020-10-20 11:28] LABS: #Lymphocytes 1.7 thou/uL (1.20-3.40); #Monocytes 0.8 thou/uL (0.11-0.59); #Neutrophils 7.6 thou/uL (1.40-6.50); %Basophils 0.2 % (0.0-1.0); %Eosinophils 0.2 % (0.0-10.0); %Lymphocytes 16.5 % (21.0-51.0); %Monocytes 7.7 % (0.0-10.0); %Neutrophils 75.3 % (42.0-75.0); Hemoglobin 14.1 g/dL (12.0-16.0); Mean Corpuscular HGB CONC 32.6 g/dL (32.0-36.0); Mean Corpuscular Hemoglobin 30.7 pg (27.0-31.0); Mean Corpuscular Volume 94.3 fL (78.0-98.0); Mean Platelet Volume 8.5 fL (7.4-10.4); Platelet Count 272 thou/uL (130-400); RBC Distribution Width 12.2 % (11.5-14.5); Red Blood Cell (RBC) Count 4.58 mill/uL (4.20-5.40)
[2020-10-20] MEDS: HYDROcodone/Acetaminophen 5/325 mg Tablet PO PRN ×2 (17:53→22:01)
[2020-10-20] MEDS: Guaifenesin DM 100-10/5 ML UDCUP PO PRN (17:53)
[2020-10-20] MEDS: Atorvastatin Calcium 40 MG TAB PO SCH (20:22)
[2020-10-20] MEDS: REMDESIVIR 100 MG in Sodium Chloride 0.9% 250 ML 230 ML IV SCH (21:35)
[2020-10-21] MEDS: Guaifenesin DM 100-10/5 ML UDCUP PO PRN ×2 (04:27→21:02)
[2020-10-21] MEDS: Mometasone 100 MCG/Formoterol 5 MCG 120 PUFF INHALER INH SCH ×2 (04:30→18:05)
[2020-10-21] MEDS ORDERED: hydrALAZINE 20 MG/ML VIAL SLOW IVP PRN (05:20)
[2020-10-21] MEDS: HumaLOG 300 UNITS/3 ML VIAL SC PRN ×3 (05:28→20:36)
[2020-10-21] MEDS: Gabapentin 300 MG CAP PO SCH ×2 (07:52→20:33)
[2020-10-21] MEDS: Icosapent Ethyl 1 GM CAPSULE PO SCH ×2 (07:52→18:04)
[2020-10-21] MEDS: Aspirin 81 mg Enteric Coated Tablet PO SCH (07:52)
[2020-10-21] MEDS: guaiFENesin ER 600 MG TAB PO SCH ×2 (07:53→20:34)
[2020-10-21] MEDS: Famotidine 20 MG TAB PO SCH ×2 (07:53→20:31)
[2020-10-21] MEDS: Thiamine 100 MG TAB PO SCH (07:53)
[2020-10-21] MEDS: Cholecalciferol (Vitamin D3) 400 UNITS TAB PO SCH (07:53)
[2020-10-21] MEDS: Zinc Sulfate 220 MG CAP PO SCH (07:53)
[2020-10-21] MEDS: Ascorbic Acid 500 mg Chewable Tablet PO SCH ×2 (07:53→20:31)
[2020-10-21] MEDS: Carvedilol 25 MG TAB PO SCH ×2 (07:54→20:33)
[2020-10-21] MEDS: Losartan 25 MG TAB PO SCH ×2 (07:54→09:37)
[2020-10-21] MEDS: Dexamethasone 4 mg/ml Vial SLOW IVP SCH (07:54)
[2020-10-21] MEDS: Enoxaparin Sodium 40 MG/0.4 ML SYRINGE SC SCH (07:54)
[2020-10-21] MEDS: Atorvastatin Calcium 40 MG TAB PO SCH (20:33)
[2020-10-21] MEDS: REMDESIVIR 100 MG in Sodium Chloride 0.9% 250 ML 230 ML IV SCH (21:02)
[2020-10-22] MEDS: Mometasone 100 MCG/Formoterol 5 MCG 120 PUFF INHALER INH SCH (05:41)
[2020-10-22] MEDS: HumaLOG 300 UNITS/3 ML VIAL SC PRN ×2 (05:41→12:04)
[2020-10-22] MEDS: Guaifenesin DM 100-10/5 ML UDCUP PO PRN (05:42)
[2020-10-22] MEDS: Zinc Sulfate 220 MG CAP PO SCH (08:28)
[2020-10-22] MEDS: Famotidine 20 MG TAB PO SCH (08:28)
[2020-10-22] MEDS: Cholecalciferol (Vitamin D3) 400 UNITS TAB PO SCH (08:28)
[2020-10-22] MEDS: Aspirin 81 mg Enteric Coated Tablet PO SCH (08:28)
[2020-10-22] MEDS: Enoxaparin Sodium 40 MG/0.4 ML SYRINGE SC SCH (08:28)
[2020-10-22] MEDS: Gabapentin 300 MG CAP PO SCH (08:28)
[2020-10-22] MEDS: Ascorbic Acid 500 mg Chewable Tablet PO SCH (08:28)
[2020-10-22] MEDS: guaiFENesin ER 600 MG TAB PO SCH (08:28)
[2020-10-22] MEDS: Thiamine 100 MG TAB PO SCH (08:28)
[2020-10-22] MEDS: Dexamethasone 4 mg/ml Vial SLOW IVP SCH (08:29)
[2020-10-22] MEDS: Losartan 25 MG TAB PO SCH (08:29)
[2020-10-22] MEDS: Icosapent Ethyl 1 GM CAPSULE PO SCH (08:33)
[2020-10-22] MEDS: Carvedilol 25 MG TAB PO SCH (08:33)
[2020-10-22 09:04] VITALS: BP 158/89; TEMP 97.6
== END 2020-10-22 13:22 | disposition home or self-care (01) | DRG 177 ==
LOC: T4-A 19:35
PROVIDERS: ADMIT Internal Medicine; ATTEND Internal Medicine
PROC: 8E0ZXY6 Isolation (ICD-10-PCS; principal; 2020-10-17)
PROC: XW033E5 Introduction of Remdesivir Anti-infective into Peripheral Vein, Percutaneous Approach, New Technology Group 5 (ICD-10-PCS; 2020-10-17)
DX: U07.1 COVID-19 (principal); J12.82 Pneumonia due to coronavirus disease 2019; J96.01 Acute respiratory failure with hypoxia; N17.9 Acute kidney failure, unspecified; Z68.41 Body mass index [BMI] 40.0-44.9, adult; K21.9 Gastro-esophageal reflux disease without esophagitis; E78.5 Hyperlipidemia, unspecified; I25.10 Atherosclerotic heart disease of native coronary artery without angina pectoris; E11.22 Type 2 diabetes mellitus with diabetic chronic kidney disease; N18.9 Chronic kidney disease, unspecified; E66.01 Morbid (severe) obesity due to excess calories; E11.65 Type 2 diabetes mellitus with hyperglycemia; T38.0X5A Adverse effect of glucocorticoids and synthetic analogues, initial encounter; I15.2 Hypertension secondary to endocrine disorders; Z86.73 Personal history of transient ischemic attack (TIA), and cerebral infarction without residual deficits; Z95.5 Presence of coronary angioplasty implant and graft; Z79.82 Long term (current) use of aspirin; Z79.899 Other long term (current) drug therapy
CPT/HCPCS: 36415; 36416; 80048; 80053; 83036; 85007; 85025; 85027; 85379; 86140; J0360; J1100; J1650; J1815; J7050

== ENCOUNTER 2020-11-26 09:17 | Outpatient (CLI) | payer MEDICARE, MEDICAID | END 2020-11-26 09:18 | disposition home or self-care (01) | LOC: BICRAD 09:17 | PROVIDERS: ATTEND Family Medicine | DX: U07.1 COVID-19 (principal) | CPT/HCPCS: 71046 ==

== ENCOUNTER 2021-03-05 10:13 | Inpatient (IN) | payer OTHER, MEDICARE, MEDICAID ==
[2021-03-05] MEDS ORDERED: Ketorolac Tromethamine 30 MG/ML VIAL ONE (10:45)
[2021-03-05] MEDS ORDERED: Morphine 4 MG/ML VIAL ONE (10:45)
[2021-03-05] MEDS ORDERED: Ondansetron PF 4 MG/2 ML Vial ONE ×2 (10:45→15:29)
[2021-03-05] MEDS ORDERED: Fentanyl 100 MCG/2 ML VIAL ONE ×2 (11:09→14:52)
[2021-03-05 11:19] LABS: Mean Corpuscular HGB CONC 29.4 g/dL (32.0-36.0); Mean Corpuscular Hemoglobin 26.6 pg (27.0-31.0); Mean Corpuscular Volume 90.4 fL (78.0-98.0); Mean Platelet Volume 8.1 fL (7.4-10.4); Platelet Count 222 thou/uL (130-400); RBC Distribution Width 11.9 % (11.5-14.5); White Blood Cell (WBC) Count 7.4 thou/uL (4.8-10.8)
[2021-03-05 11:36] LABS: #Eosinphils 0.1 thou/uL (0.0-0.7); #Lymphocytes 1.8 thou/uL (1.20-3.40); #Monocytes 0.6 thou/uL (0.11-0.59); #Neutrophils 4.8 thou/uL (1.40-6.50); %Basophils 0.5 % (0.0-1.0); %Eosinophils 1.8 % (0.0-10.0); %Lymphocytes 24.4 % (21.0-51.0); %Monocytes 8.6 % (0.0-10.0); %Neutrophils 64.7 % (42.0-75.0)
[2021-03-05 11:37] LABS: ALT (SGPT) 21 U/L (8-55); AST (SGOT) 18 U/L (5-34); Albumin 3.2 g/dL (3.5-5.0); Alkaline Phosphatase 131 U/L (40-110); Anion Gap 15 mmol/L (10-20); BUN (Urea Nitrogen) 10 mg/dL (9.8-20.1); Bilirubin, Total 0.5 mg/dL (0.2-1.2); Calc. Creatinine Clearance 0 mL/min (70-130); Calcium 9.4 mg/dL (7.8-10.44); Carbon Dioxide 23 mmol/L (22-29); Chloride 102 mmol/L (98-107); Globulin 3.2 g/dL (2.4-3.5); Glucose 215 mg/dL (70-105); Magnesium 1.5 mg/dL (1.6-2.6); Platelet Morphology Comment Appears Adequate; Potassium 4.2 mmol/L (3.5-5.1); Protein, Total 6.4 g/dL (6.0-8.3); RBC Morphology Normal; Sodium 136 mmol/L (136-145)
[2021-03-05 12:14] LABS: SARS-CoV-2 NAA Rapid Test Not Detected (NotDetected)
[2021-03-05] MEDS ORDERED: ceFAZolin 2 GM/DEX 5% 100 ML BAG ONE ×2 (12:28→15:10)
[2021-03-05] MEDS ORDERED: Magnesium Sulfate 3 GM in Sodium Chloride 0.9% 250 ML 250 ML IVPB SCH (13:00)
[2021-03-05] MEDS ORDERED: HYDROmorphone 0.5 MG/0.5 ML SYRINGE ONE (14:52)
[2021-03-05] MEDS ORDERED: Neomycin-Polymyxin 1 ML AMP ONE (15:02)
[2021-03-05 15:22] VITALS: BMI 42.4
[2021-03-05] MEDS ORDERED: Phenylephrine 10 MG/ML VIAL ONE (15:29)
[2021-03-05] MEDS ORDERED: PROPOFOL 200 MG/20 ML VIAL ONE (15:29)
[2021-03-05] MEDS ORDERED: Lidocaine 1% PF 5 ML VIAL ONE (15:29)
[2021-03-05] MEDS ORDERED: Midazolam HCl 2 mg/2 ml Vial ONE (15:30)
[2021-03-05] MEDS ORDERED: hydrALAZINE 20 MG/ML VIAL SLOW IVP PRN (16:58)
[2021-03-05] MEDS ORDERED: Ondansetron PF 4 MG/2 ML Vial IVP PRN (16:58)
[2021-03-05] MEDS ORDERED: traMADol HCl 50 MG TAB PO PRN (16:58)
[2021-03-05] MEDS ORDERED: Dextrose 50% Abboject 50 ML SYRINGE SLOW IVP PRN (16:58)
[2021-03-05] MEDS ORDERED: HumaLOG 300 UNITS/3 ML VIAL SC PRN (16:58)
[2021-03-05] MEDS ORDERED: Dextrose 5% in Water 1,000 ML IV PRN (16:58)
[2021-03-05] MEDS ORDERED: Ketorolac Tromethamine 30 MG/ML VIAL IVP SCH (16:58)
[2021-03-05] MEDS ORDERED: Ondansetron ODT 4 MG TAB PO PRN (16:58)
[2021-03-05] MEDS ORDERED: Morphine 4 MG/ML VIAL SLOW IVP PRN (17:13)
[2021-03-05 17:34] LABS: Bilirubin Negative (Negative); Blood, Urine Negative (Negative); Clarity Turbid (Clear); Glucose, Urine (Dipstick) Normal (Negative); Ketone, Urine Trace mg/dL (Negative); Leukocyte 250 Leu/uL (Negative); Nitrite 1+ (Negative); Protein, Urine (Dipstick) 30 mg/dL (Neg-Trace); RBC/HPF 0-3 HPF (0-3); Specific Gravity, Urine 1.041 (1.002-1.036); WBC/HPF 21-50 HPF (0-3); pH, Urine 5.5 (5.0-9.0)
[2021-03-05 17:35] LABS: Bacteria/HPF 1+ HPF (None Seen)
[2021-03-05] MEDS ORDERED: Promethazine HCl 25 MG/ML VIAL IVPB PRN (17:50)
[2021-03-05] MEDS ORDERED: Ondansetron HCl/PF 4 MG/2 ML Vial IVP PRN (17:50)
[2021-03-05] MEDS ORDERED: HYDROmorphone 2 MG/ML VIAL SLOW IVP PRN (17:50)
[2021-03-05] MEDS ORDERED: Promethazine HCl 25 MG/ML VIAL IM PRN (17:50)
[2021-03-05] MEDS ORDERED: Ibuprofen 800 MG TAB PO SCH (18:00)
[2021-03-05] MEDS ORDERED: cefTRIAXone\\ROCEPHIN 1 GM in Sodium Chloride 0.9% 100 ML IVPB SCH (18:00)
[2021-03-05] MEDS: Acetaminophen 500 MG TAB PO SCH (19:32)
[2021-03-05] MEDS: Famotidine 20 MG TAB PO SCH (19:37)
[2021-03-05] MEDS: Ibuprofen 800 MG TAB PO SCH (21:14)
[2021-03-05] MEDS: Sodium Chloride 0.9% 1,000 ML IV SCH (22:27)
[2021-03-05 22:54] LABS: Magnesium 2.5 mg/dL (1.6-2.6)
[2021-03-05] MEDS ORDERED: ceFAZolin Sodium/D5W 2 GM in Premix Bag 1 BAG IVPB SCH (23:00)
[2021-03-06] MEDS: Acetaminophen 500 MG TAB PO SCH ×4 (01:13→16:30)
[2021-03-06] MEDS: traMADol HCl 50 MG TAB PO PRN (01:15)
[2021-03-06] MEDS: Sodium Chloride 0.9% 1,000 ML IV SCH ×2 (02:32→08:35)
[2021-03-06 06:53] LABS: #Eosinphils 0.2 thou/uL (0.0-0.7); #Lymphocytes 1.9 thou/uL (1.20-3.40); #Neutrophils 4.9 thou/uL (1.40-6.50); %Basophils 0.4 % (0.0-1.0); %Eosinophils 2.4 % (0.0-10.0); %Lymphocytes 23.5 % (21.0-51.0); %Monocytes 12.4 % (0.0-10.0); %Neutrophils 61.4 % (42.0-75.0); Hemoglobin 13.3 g/dL (12.0-16.0); Mean Corpuscular HGB CONC 32.2 g/dL (32.0-36.0); Mean Corpuscular Hemoglobin 29.9 pg (27.0-31.0); Platelet Count 224 thou/uL (130-400); RBC Distribution Width 11.9 % (11.5-14.5); Red Blood Cell (RBC) Count 4.44 mill/uL (4.20-5.40)
[2021-03-06 07:15] LABS: Anion Gap 12 mmol/L (10-20); BUN (Urea Nitrogen) 11 mg/dL (9.8-20.1); Calc. Creatinine Clearance 152 mL/min (70-130); Calcium 8.6 mg/dL (7.8-10.44); Carbon Dioxide 24 mmol/L (22-29); Chloride 105 mmol/L (98-107); Glucose 161 mg/dL (70-105); Phosphorus 3.7 mg/dL (2.3-4.7); Potassium 4.4 mmol/L (3.5-5.1); Sodium 137 mmol/L (136-145)
[2021-03-06] MEDS: Ibuprofen 800 MG TAB PO SCH ×3 (07:26→21:42)
[2021-03-06] MEDS: Famotidine 20 MG TAB PO SCH ×2 (08:23→21:42)
[2021-03-06] MEDS: HumaLOG 300 UNITS/3 ML VIAL SC PRN (18:30)
[2021-03-06] MEDS: cefTRIAXone\\ROCEPHIN 1 GM in Sodium Chloride 0.9% 100 ML IVPB SCH (18:30)
[2021-03-06] MEDS ORDERED: Labetalol HCl 100 MG/20 ML VIAL ONE (20:12)
[2021-03-06] MEDS: Cyclobenzaprine 10 MG TAB PO PRN (21:42)
[2021-03-07] MEDS: Acetaminophen 500 MG TAB PO SCH ×5 (03:26→23:48)
[2021-03-07] MEDS: Ibuprofen 800 MG TAB PO SCH ×3 (06:15→23:12)
[2021-03-07] MEDS: traMADol HCl 50 MG TAB PO PRN (08:33)
[2021-03-07] MEDS: Famotidine 20 MG TAB PO SCH ×2 (08:33→21:30)
[2021-03-07] MEDS: HumaLOG 300 UNITS/3 ML VIAL SC PRN ×3 (13:42→23:15)
[2021-03-07] MEDS: cefTRIAXone\\ROCEPHIN 1 GM in Sodium Chloride 0.9% 100 ML IVPB SCH (15:29)
[2021-03-07] MEDS: Cyclobenzaprine 10 MG TAB PO PRN (23:48)
[2021-03-08] MEDS: Acetaminophen 500 MG TAB PO SCH ×3 (06:28→17:03)
[2021-03-08] MEDS: Ibuprofen 800 MG TAB PO SCH ×2 (06:29→14:21)
[2021-03-08] MEDS: Famotidine 20 MG TAB PO SCH (09:04)
[2021-03-08] MEDS: cefTRIAXone\\ROCEPHIN 1 GM in Sodium Chloride 0.9% 100 ML IVPB SCH (14:21)
[2021-03-08 16:20] VITALS: TEMP 97.6
[2021-03-08 16:56] VITALS: BP 159/89
[2021-03-08] MEDS: HumaLOG 300 UNITS/3 ML VIAL SC PRN (17:03)
[2021-03-08] MEDS ORDERED: Enoxaparin Sodium 30 MG/0.3 ML SYRINGE SC SCH (21:00)
== END 2021-03-08 18:20 | DRG 493 ==
LOC: ERS 10:13 → SJJU 11:33
PROVIDERS: ADMIT Internal Medicine; ATTEND Surgery
PROC: 0QSG04Z Reposition Right Tibia with Internal Fixation Device, Open Approach (ICD-10-PCS; principal; 2021-03-05)
PROC: 2W3QX1Z Immobilization of Right Lower Leg using Splint (ICD-10-PCS; 2021-03-05)
DX: S82.871A Displaced pilon fracture of right tibia, initial encounter for closed fracture (principal); Z68.41 Body mass index [BMI] 40.0-44.9, adult; N39.0 Urinary tract infection, site not specified; S82.831A Other fracture of upper and lower end of right fibula, initial encounter for closed fracture; W19.XXXA Unspecified fall, initial encounter; I10 Essential (primary) hypertension; E11.40 Type 2 diabetes mellitus with diabetic neuropathy, unspecified; E78.5 Hyperlipidemia, unspecified; Z20.822 Contact with and (suspected) exposure to COVID-19; E66.9 Obesity, unspecified; Z96.653 Presence of artificial knee joint, bilateral; Y92.524 Gas station as the place of occurrence of the external cause; Z79.84 Long term (current) use of oral hypoglycemic drugs; Z79.899 Other long term (current) drug therapy; Z90.49 Acquired absence of other specified parts of digestive tract; Z90.711 Acquired absence of uterus with remaining cervical stump
CPT/HCPCS: 36415; 36416; 71045; 72170; 76000; 80048; 80053; 81003; 81015; 83735; 84100; 85025; 87077; 87086; 87186; 93005; 94760; C1713; C1889; G0390; J0696; J1170; J1815; J1885; J2250; J2270; J2370; J2405; J2704; J3010; J3475; J3490; J7050; U0002

== ENCOUNTER 2021-04-13 11:37 | Emergency (ER) | payer MEDICARE, MEDICAID ==
[2021-04-13 14:53] LABS: #Eosinphils 0.2 thou/uL (0.0-0.7); #Lymphocytes 3.3 thou/uL (1.20-3.40); #Monocytes 0.6 thou/uL (0.11-0.59); #Neutrophils 5.8 thou/uL (1.40-6.50); %Basophils 0.4 % (0.0-1.0); %Monocytes 6.3 % (0.0-10.0); %Neutrophils 58.4 % (42.0-75.0); Hemoglobin 13.5 g/dL (12.0-16.0); Mean Corpuscular HGB CONC 32.5 g/dL (32.0-36.0); Mean Corpuscular Hemoglobin 29.5 pg (27.0-31.0); Mean Corpuscular Volume 90.7 fL (78.0-98.0); Mean Platelet Volume 9.1 fL (7.4-10.4); Platelet Count 251 thou/uL (130-400); RBC Distribution Width 12.3 % (11.5-14.5); Red Blood Cell (RBC) Count 4.58 mill/uL (4.20-5.40)
[2021-04-13 14:54] LABS: ALT (SGPT) 24 U/L (8-55); AST (SGOT) 16 U/L (5-34); Albumin 3.7 g/dL (3.5-5.0); Alkaline Phosphatase 142 U/L (40-110); Anion Gap 19 mmol/L (10-20); BUN (Urea Nitrogen) 13 mg/dL (9.8-20.1); Bilirubin, Total 0.6 mg/dL (0.2-1.2); Calc. Creatinine Clearance 0 mL/min (70-130); Calcium 9.5 mg/dL (7.8-10.44); Carbon Dioxide 23 mmol/L (22-29); Chloride 100 mmol/L (98-107); Glucose 145 mg/dL (70-105); Potassium 3.9 mmol/L (3.5-5.1); Protein, Total 6.7 g/dL (6.0-8.3); Sodium 138 mmol/L (136-145)
== END 2021-04-13 16:18 | disposition home or self-care (01) ==
LOC: ERS 11:37
DX: L03.115 Cellulitis of right lower limb (principal); I10 Essential (primary) hypertension; E78.5 Hyperlipidemia, unspecified; E11.9 Type 2 diabetes mellitus without complications; Z79.84 Long term (current) use of oral hypoglycemic drugs; Z79.899 Other long term (current) drug therapy
CPT/HCPCS: 36415; 80053; 85025; 85652; 86140

== ENCOUNTER 2022-05-09 12:09 | Outpatient (CLI) | payer MEDICARE, MEDICAID | END 2022-05-09 12:10 | disposition home or self-care (01) | LOC: BICMAMMO 12:09 | PROVIDERS: ATTEND Family Medicine | DX: Z12.31 Encounter for screening mammogram for malignant neoplasm of breast (principal); N63.15 Unspecified lump in the right breast, overlapping quadrants; Z80.3 Family history of malignant neoplasm of breast | CPT/HCPCS: 77063; 77067 ==

== ENCOUNTER 2022-05-12 13:31 | Outpatient (CLI) | payer MEDICARE, MEDICAID | END 2022-05-12 13:32 | disposition home or self-care (01) | LOC: BICULT 13:31 | PROVIDERS: ATTEND Family Medicine | DX: N63.10 Unspecified lump in the right breast, unspecified quadrant (principal); I88.9 Nonspecific lymphadenitis, unspecified; N60.21 Fibroadenosis of right breast | CPT/HCPCS: 76642; 77065; G0279 ==

== ENCOUNTER 2023-01-22 08:12 | Inpatient (IN) | payer MEDICARE, MEDICAID ==
[2023-01-22] MEDS ORDERED: Ipratropium/Albuterol 3 ML NEB ONE (08:16)
[2023-01-22] MEDS ORDERED: methylPREDNISolone Sod Succ/PF 125 MG/2 ML VIAL ONE (08:29)
[2023-01-22] MEDS ORDERED: Magnesium 2 GM/50 ML BAG (IN WATER) ONE (08:31)
[2023-01-22 08:39] LABS: Hematocrit 47.1 % (36.0-47.0); Mean Corpuscular HGB CONC 31.8 g/dL (32.0-36.0); Mean Corpuscular Hemoglobin 29.5 pg (27.0-31.0); Mean Corpuscular Volume 92.7 fl (78.0-98.0); Mean Platelet Volume 10.7 fL (7.4-10.4); Platelet Count 317 10x3/uL (130-400); RBC Distribution Width 12.9 % (11.5-14.5); Red Blood Cell (RBC) Count 5.08 mill/uL (4.20-5.40); White Blood Cell (WBC) Count 11.1 10x3/uL (4.8-10.8)
[2023-01-22 08:43] LABS: Delete Auto Diff?? YES; Manual Diff?? YES
[2023-01-22 08:52] LABS: Prothrombin Time 13.3 sec (12.0-14.7)
[2023-01-22 08:53] LABS: PTT 34.9 sec (22.9-36.1)
[2023-01-22 09:04] LABS: Troponin I Less than 0.010 ng/mL (< 0.028)
[2023-01-22 09:17] LABS: ALT (SGPT) 18 U/L (8-55); AST (SGOT) 25 U/L (5-34); Albumin 3.6 g/dL (3.4-4.8); Alkaline Phosphatase 126 U/L (40-110); Anion Gap 17 mmol/L (10-20); BUN (Urea Nitrogen) 11 mg/dL (9.8-20.1); Bilirubin, Total 0.3 mg/dL (0.2-1.2); Calc. Creatinine Clearance 0 mL/min (70-130); Calcium 9.6 mg/dL (7.8-10.44); Carbon Dioxide 28 mmol/L (23-31); Chloride 101 mmol/L (98-107); Estimated GFR 86; Globulin 4.9 g/dL (2.4-3.5); Glucose 176 mg/dL (80-115); Potassium 4.9 mmol/L (3.5-5.1); Protein, Total 8.5 g/dL (5.8-8.1); Sodium 141 mmol/L (136-145)
[2023-01-22 09:30] LABS: Band 4 % (5-11); CellaVision Operator ID LAB.GE; Eosinophils 3 % (0-10); Lymphocytes 37 % (21-51); Monocytes 7 % (0-10); Neutrophil 44 % (42-75); Platelet Adequacy Comment Platelets Normal; Polychromasia MODERATE = 3-4 cells HPF (0-2); Reactive Lymphocytes 5 % (0-10); Total Cell Count 104; Vacuoles SLIGHT
[2023-01-22 12:20] LABS: Lactic Acid 2.7 mmol/L (0.5-2.2)
[2023-01-22] MEDS ORDERED: Ondansetron PF 4 MG/2 ML Vial IVP PRN (12:33)
[2023-01-22] MEDS ORDERED: Acetaminophen 325 MG TAB PO PRN (12:33)
[2023-01-22] MEDS ORDERED: Ondansetron ODT 4 MG TAB PO PRN (12:33)
[2023-01-22] MEDS ORDERED: Senokot S 8.6-50 MG TAB PO PRN (12:33)
[2023-01-22] MEDS ORDERED: Acetaminophen 650 MG Suppository PR PRN (12:33)
[2023-01-22] MEDS ORDERED: Calcium Carbonate 500 MG ChewTAB PO PRN (12:33)
[2023-01-22] MEDS ORDERED: Dextrose 5% in Water 1,000 ML IV PRN (12:38)
[2023-01-22] MEDS ORDERED: Dextrose 50% Abboject 50 ML SYRINGE SLOW IVP PRN (12:38)
[2023-01-22] MEDS ORDERED: Glucagon 1 MG/ML KIT IM PRN (12:38)
[2023-01-22] MEDS ORDERED: Sodium Chloride 0.9% 1,000 ML IV SCH ×2 (12:45→22:30)
[2023-01-22 13:35] VITALS: BMI 32.8
[2023-01-22 13:52] LABS: SARS-CoV-2 NAA Rapid Test Not Detected (NotDetected)
[2023-01-22] MEDS: Ipratropium/Albuterol 3 ML NEB NEB SCH ×3 (16:10→22:28)
[2023-01-22] MEDS: methylPREDNISolone Sod Succ 40 MG VIAL IVP SCH ×2 (17:25→20:36)
[2023-01-22] MEDS: Mometasone/Formoterol 200/5 60 PUFF INH SCH (18:11)
[2023-01-22] MEDS ORDERED: Baclofen 10 MG TAB PO PRN (18:12)
[2023-01-22] MEDS ORDERED: Nystatin Powder 15 GM BOT TOP PRN (18:14)
[2023-01-22 18:20] LABS: Bacteria/HPF None Seen HPF (None Seen); Bilirubin Negative (Negative); Blood, Urine Negative (Negative); CAUTI Indications for Culture Pelvic or flank pain; Clarity Clear (Clear); Glucose, Urine (Dipstick) Normal (Negative); Ketone, Urine Negative (Negative); Leukocyte Negative Leu/uL (Negative); Nitrite Negative (Negative); Protein, Urine (Dipstick) Negative (Neg-Trace); RBC/HPF 0-3 HPF (0-3); Specific Gravity, Urine 1.021 (1.002-1.036); Urobilinogen Normal mg/dL (Less than 2); WBC/HPF 0-3 HPF (0-3)
[2023-01-22 18:22] LABS: Urine Culture Reflex No No
[2023-01-22] MEDS: HumaLOG 300 UNITS/3 ML VIAL SC PRN ×2 (18:37→21:12)
[2023-01-22] MEDS: Atorvastatin Calcium 40 MG TAB PO SCH (20:35)
[2023-01-22] MEDS: Famotidine 20 MG TAB PO SCH (20:35)
[2023-01-22 22:00] LABS: Lactic Acid 4.1 mmol/L (0.5-2.2)
[2023-01-22] MEDS ORDERED: Sodium Chloride 0.9% 500 ML IV SCH (22:30)
[2023-01-23 00:12] LABS: Lactic Acid 2.8 mmol/L (0.5-2.2)
[2023-01-23] MEDS: Ipratropium/Albuterol 3 ML NEB NEB SCH ×4 (03:11→13:12)
[2023-01-23 05:26] LABS: Hematocrit 41.8 % (36.0-47.0); Hemoglobin 13.3 g/dL (12.0-16.0); Mean Corpuscular HGB CONC 31.8 g/dL (32.0-36.0); Mean Corpuscular Hemoglobin 29.1 pg (27.0-31.0); Mean Corpuscular Volume 91.5 fl (78.0-98.0); Mean Platelet Volume 10.4 fL (7.4-10.4); Platelet Count 331 10x3/uL (130-400); RBC Distribution Width 12.7 % (11.5-14.5); Red Blood Cell (RBC) Count 4.57 mill/uL (4.20-5.40); White Blood Cell (WBC) Count 13.2 10x3/uL (4.8-10.8)
[2023-01-23 05:40] LABS: Delete Auto Diff?? YES; Manual Diff?? YES
[2023-01-23] MEDS: methylPREDNISolone Sod Succ 40 MG VIAL IVP SCH ×4 (05:40→21:26)
[2023-01-23] MEDS: HumaLOG 300 UNITS/3 ML VIAL SC PRN ×3 (05:44→21:23)
[2023-01-23 05:56] LABS: ALT (SGPT) 13 U/L (8-55); AST (SGOT) 12 U/L (5-34); Albumin 3.3 g/dL (3.4-4.8); Alkaline Phosphatase 117 U/L (40-110); Anion Gap 12 mmol/L (10-20); BUN (Urea Nitrogen) 13 mg/dL (9.8-20.1); Bilirubin, Total 0.3 mg/dL (0.2-1.2); Calc. Creatinine Clearance 109 mL/min (70-130); Calcium 8.8 mg/dL (7.8-10.44); Carbon Dioxide 23 mmol/L (23-31); Chloride 106 mmol/L (98-107); Estimated GFR 85; Globulin 3.7 g/dL (2.4-3.5); Glucose 349 mg/dL (80-115); Potassium 4.3 mmol/L (3.5-5.1); Sodium 137 mmol/L (136-145)
[2023-01-23 06:05] LABS: CellaVision Operator ID lab.sh2; Lymphocytes 18 % (21-51); Macrocytosis SLIGHT = 6-15 cells HPF (0-5); Monocytes 8 % (0-10); Neutrophil 72 % (42-75); Platelet Adequacy Comment Platelets Normal; Polychromasia SLIGHT = 2-3 cells HPF (0-2); Reactive Lymphocytes 2 % (0-10); Smudge Cells 11.1 %; Total Cell Count 99
[2023-01-23] MEDS: Mometasone/Formoterol 200/5 60 PUFF INH SCH (07:31)
[2023-01-23] MEDS: CeleCOXIB 100 MG CAP PO SCH (08:30)
[2023-01-23] MEDS: Losartan 25 MG TAB PO SCH (08:30)
[2023-01-23] MEDS: Cholecalciferol (Vitamin D3) 400 UNITS TAB PO SCH (08:31)
[2023-01-23] MEDS: Magnesium Oxide 250 MG TAB PO SCH (08:31)
[2023-01-23] MEDS: Multivitamin W/ Minerals 1 TAB PO SCH (08:31)
[2023-01-23] MEDS: Isosorbide Mononitrate 30 MG ER.TAB PO SCH (08:31)
[2023-01-23] MEDS: Famotidine 20 MG TAB PO SCH ×2 (08:31→21:24)
[2023-01-23] MEDS: Aspirin 81 mg Enteric Coated Tablet PO SCH (08:31)
[2023-01-23] MEDS: Icosapent Ethyl 1 GM CAPSULE PO SCH ×2 (08:32→17:15)
[2023-01-23] MEDS: metFORMIN 500 MG TAB PO SCH (18:13)
[2023-01-23] MEDS: Atorvastatin Calcium 40 MG TAB PO SCH (21:24)
[2023-01-24] MEDS: Ipratropium/Albuterol 3 ML NEB NEB SCH ×6 (04:29→23:48)
[2023-01-24] MEDS: Mometasone/Formoterol 200/5 60 PUFF INH SCH ×3 (04:30→19:26)
[2023-01-24] MEDS: Benzonatate 100 MG CAP PO PRN ×3 (04:42→21:11)
[2023-01-24] MEDS: methylPREDNISolone Sod Succ 40 MG VIAL IVP SCH ×3 (05:38→21:13)
[2023-01-24] MEDS: HumaLOG 300 UNITS/3 ML VIAL SC PRN ×3 (05:38→21:10)
[2023-01-24 06:55] LABS: #Monocytes 0.5 thou/uL (0.11-0.59); %Basophils 0.1 % (0.0-1.0); %Lymphocytes 13.7 % (21.0-51.0); %Monocytes 3.8 % (0.0-10.0); Hematocrit 43.2 % (36.0-47.0); Hemoglobin 13.9 g/dL (12.0-16.0); Mean Corpuscular HGB CONC 32.2 g/dL (32.0-36.0); Mean Corpuscular Hemoglobin 29.5 pg (27.0-31.0); Mean Corpuscular Volume 91.7 fl (78.0-98.0); Mean Platelet Volume 10.2 fL (7.4-10.4); Platelet Count 365 10x3/uL (130-400); RBC Distribution Width 12.8 % (11.5-14.5); Red Blood Cell (RBC) Count 4.71 mill/uL (4.20-5.40); White Blood Cell (WBC) Count 14.1 10x3/uL (4.8-10.8)
[2023-01-24 07:18] LABS: Anion Gap 15 mmol/L (10-20); BUN (Urea Nitrogen) 18 mg/dL (9.8-20.1); Calc. Creatinine Clearance 108 mL/min (70-130); Calcium 9.1 mg/dL (7.8-10.44); Carbon Dioxide 23 mmol/L (23-31); Chloride 101 mmol/L (98-107); Estimated GFR 84; Glucose 334 mg/dL (80-115); Potassium 4.4 mmol/L (3.5-5.1); Sodium 135 mmol/L (136-145)
[2023-01-24] MEDS: metFORMIN 500 MG TAB PO SCH ×2 (08:25→16:47)
[2023-01-24] MEDS: Icosapent Ethyl 1 GM CAPSULE PO SCH ×2 (08:25→16:57)
[2023-01-24] MEDS: Magnesium Oxide 250 MG TAB PO SCH (08:27)
[2023-01-24] MEDS: CeleCOXIB 100 MG CAP PO SCH (08:27)
[2023-01-24] MEDS: Aspirin 81 mg Enteric Coated Tablet PO SCH (08:27)
[2023-01-24] MEDS: Losartan 25 MG TAB PO SCH (08:28)
[2023-01-24] MEDS: Multivitamin W/ Minerals 1 TAB PO SCH (08:28)
[2023-01-24] MEDS: Cholecalciferol (Vitamin D3) 400 UNITS TAB PO SCH (08:28)
[2023-01-24] MEDS: Isosorbide Mononitrate 30 MG ER.TAB PO SCH (08:28)
[2023-01-24] MEDS: Famotidine 20 MG TAB PO SCH ×2 (08:28→21:11)
[2023-01-24] MEDS ORDERED: LevoFLOXacin 750 mg/D5W 750 MG in Premix 1 BAG IVPB SCH (14:00)
[2023-01-24] MEDS: Atorvastatin Calcium 40 MG TAB PO SCH (21:11)
[2023-01-25] MEDS: HumaLOG 300 UNITS/3 ML VIAL SC PRN ×2 (05:26→09:14)
[2023-01-25] MEDS: methylPREDNISolone Sod Succ 40 MG VIAL IVP SCH (05:26)
[2023-01-25] MEDS: Benzonatate 100 MG CAP PO PRN (05:27)
[2023-01-25] MEDS: Mometasone/Formoterol 200/5 60 PUFF INH SCH (06:49)
[2023-01-25] MEDS: Ipratropium/Albuterol 3 ML NEB NEB SCH (06:50)
[2023-01-25 08:53] VITALS: BP 153/99; TEMP 97.7
[2023-01-25] MEDS: Magnesium Oxide 250 MG TAB PO SCH (09:12)
[2023-01-25] MEDS: Cholecalciferol (Vitamin D3) 400 UNITS TAB PO SCH (09:12)
[2023-01-25] MEDS: CeleCOXIB 100 MG CAP PO SCH (09:12)
[2023-01-25] MEDS: Isosorbide Mononitrate 30 MG ER.TAB PO SCH (09:12)
[2023-01-25] MEDS: metFORMIN 500 MG TAB PO SCH (09:13)
[2023-01-25] MEDS: Aspirin 81 mg Enteric Coated Tablet PO SCH (09:13)
[2023-01-25] MEDS: Famotidine 20 MG TAB PO SCH (09:13)
[2023-01-25] MEDS: Icosapent Ethyl 1 GM CAPSULE PO SCH (09:14)
[2023-01-25] MEDS: Multivitamin W/ Minerals 1 TAB PO SCH (09:14)
[2023-01-25] MEDS: Losartan 25 MG TAB PO SCH (09:14)
[2023-01-25] MEDS ORDERED: FLU VACC QS2023-24(6MOS UP)/PF 60 MCG/0.5 ML SYRINGE IM ONE (16:45)
== END 2023-01-25 10:58 | disposition home or self-care (01) | DRG 203 ==
LOC: ERS 08:12 → ERHOLD 11:45 → MSONC 15:11
PROVIDERS: ADMIT Internal Medicine; ATTEND Internal Medicine
PROC: 5A09357 Assistance with Respiratory Ventilation, Less than 24 Consecutive Hours, Continuous Positive Airway Pressure (ICD-10-PCS; principal; 2023-01-22)
DX: J45.901 Unspecified asthma with (acute) exacerbation (principal); I10 Essential (primary) hypertension; E78.5 Hyperlipidemia, unspecified; Z96.653 Presence of artificial knee joint, bilateral; K21.9 Gastro-esophageal reflux disease without esophagitis; E11.9 Type 2 diabetes mellitus without complications; I25.10 Atherosclerotic heart disease of native coronary artery without angina pectoris; Z86.73 Personal history of transient ischemic attack (TIA), and cerebral infarction without residual deficits; Z95.5 Presence of coronary angioplasty implant and graft; Z98.890 Other specified postprocedural states; Z90.710 Acquired absence of both cervix and uterus; Z90.49 Acquired absence of other specified parts of digestive tract; Z79.82 Long term (current) use of aspirin; Z79.899 Other long term (current) drug therapy; Z79.84 Long term (current) use of oral hypoglycemic drugs; Z11.52 Encounter for screening for COVID-19
CPT/HCPCS: 36415; 36416; 71045; 80048; 80053; 81001; 83605; 83880; 84484; 85025; 85610; 85730; 87040; 93005; 94640; 94660; 94664; 96365; 96375; J1650; J1815; J1956; J2920; J2930; J3475; J7050; J7620; U0002